=== PATIENT | male | born 1990 | race Caucasian/White ===

== ENCOUNTER 2021-07-24 18:09 | Emergency (ER) | payer BC, SELFPAY ==
[2021-07-24 19:28] VITALS: BP 116/74; PULSE 85; RESP 18; TEMP 36.9; O2SAT 96; BMI 20.9
[2021-07-24 19:38] LABS: UTC Strep Screen (Rapid) Positive (Negative)
--- NOTE | 2021-07-24 19:50 | HMH.EDUTC ---
[facility] Dis[facility] Clinical Impression: Strep throat Disposition: Home, Self-Care Condition on Discharge: Good Instructions: Strep Throat, DI for Strep Throat Additional Instructions: Drink plenty of fluids. Take tylenol or ibuprofen for pain or fever. Take the medications as directed. Follow up with your regular doctor. GO TO THE ER FOR ANY WORSENING SYMPTOMS Throw your tooth brush away and get a new one. Prescriptions: Brompheniramine/Pseudoephed/Dm [Bromfed Dm Cough Syrup] 5 ml PO Q6HP PRN #240 ml PRN Reason: Cough Transmission Status: Received by [id number] Amoxicillin [Amoxicillin 500mg Tab] 500 mg PO TID 10 Days #30 tab Transmission Status: Received by [id number] predniSONE [Deltasone 10mg tablet] 10 mg PO BID 3 Days #6 tab Transmission Status: Received by [id number] Referrals: Wallace Rodriguez MD [Primary Care Provider] - Forms: Work/School Release Time of Disposition: 20:33 Medical Decision Making - Medical Records Medical records reviewed: No: I reviewed the patient's medical records. - Bird Inquiry Pt receiving controlled substance: No Vital Signs: 07/24/21 19:28 Temperature 98.5 F Temperature Source Oral Pulse Rate [Left] 85 Respiratory Rate 18 Blood Pressure [Right Arm] 116/74 Blood Pressure Mean [Right Arm] 88 02 Sat by Pulse Oximetry 96 - Lab Data Lab results reviewed: Yes: I reviewed the patient's lab results. Lab Results 07/24/21 19:28: Strep [facility] Positive A Orders (Tests/Meds): ED MEDICATIONS Discontinued Medications Generic Name Dose Route Start Last Admin Trade Name Freq PRN Reason Stop Dose Admin Ceftriaxone Sodium 1 gm 07/24/21 19:57 07/24/21 20:11 Ceftriaxone 1gm Vial IM 07/24/21 19:58 1 gm ONCE ONE Administration Lidocaine HCl 0 ml 07/24/21 19:57 07/24/21 20:11 Lidocaine 1% 5ml Pf Vial IM 07/24/21 19:58 2 ml ONCE ONE Administration [facility] HPI - General Stated complaint: sore throat,cough,congestion Time Seen by Provider: 07/24/21 19:51 Mode of Arrival: Ambulatory Source of Information: Patient Limitations: No Limitations Description of Symptoms (Recalled from Triage Doc. by RN): pt c/o nasal drainage, cough and sore throat. HEENT Symptoms (Recalled from RN notes): Yes Resp Symptoms (Recalled from RN notes): Yes Skin Symptoms (Recalled from RN notes): No MS Symptoms (Recalled from RN notes): No Functional Status (Recalled from RN notes): wnl - History of Present Illness Provider Complaint: He c/o sore throat for the past 2 days. - Related Data Home Medications Medication Instructions Recorded Confirmed Aspirin [Aspir 81] 81 mg PO DAILY 12/03/17 02/09/20 insulin lispro 100 unit/mL 32 unit SUB-Q QHS ml 02/09/20 02/09/20 subcutaneous half-unit pen Previous Rx's Medication Instructions Recorded Amoxicillin [Amoxicillin 500mg Tab] 500 mg PO TID 10 Days #30 tab 07/24/21 Brompheniramine/Pseudoephed/Dm 5 ml PO Q6HP PRN #240 ml 07/24/21 [Bromfed Dm Cough Syrup] predniSONE [Deltasone 10mg tablet] 10 mg PO BID 3 Days #6 tab 07/24/21 Allergies Allergy/AdvReac Type Severity Reaction Status Date / Time No Known Allergies Allergy Verified 02/09/20 10:54 - Worker's Comp Is this a Worker's Comp case?: No [facility] History - Hepatitis A Screen Drug use history?: No High risk sexual behaviors?: No History of sexually transmitted infection?: No Currently employed?: No Childcare worker?: No Do you have indoor plumbing?: Yes Do you have electricity?: Yes Attestation statement:: This patient has been screened for Hepatitis A risk factors. I have reviewed the patient's past medical history: Yes Medical History: Reports:: Diabetes Mellitus Type 1 Denies:: Diabetes Mellitus Type 2 Laterality Cases: Left: Arthroscopy Knee Other Surgeries: Yes: Cardiac Catheterization - Social History Smoking Status: Current every day smoker # Packs/Day
[2021-07-24 20:36] VITALS: BP 116/74; PULSE 85; RESP 18; TEMP 36.9
== END 2021-07-24 20:39 | disposition home or self-care (01) ==
PROVIDERS: Emergency Provider Nurse Practitioner Family; PCP Internal Medicine Cardiovascular Disease
DX: J02.0 Streptococcal pharyngitis (principal); B95.0 Streptococcus, group A, as the cause of diseases classified elsewhere; E10.9 Type 1 diabetes mellitus without complications; F17.210 Nicotine dependence, cigarettes, uncomplicated; Z79.4 Long term (current) use of insulin; Z79.82 Long term (current) use of aspirin; Z79.52 Long term (current) use of systemic steroids; Z79.899 Other long term (current) drug therapy; Z82.49 Family history of ischemic heart disease and other diseases of the circulatory system
CPT/HCPCS: 87880; 99213; G0463; J0696

== ENCOUNTER 2022-12-24 16:14 | Emergency (ER) | payer BC, SELFPAY ==
[2022-12-24 16:14] VITALS: BP 147/105; PULSE 92; RESP 16; TEMP 36.6; O2SAT 99; BMI 23.3
--- NOTE | 2022-12-24 16:14 | ECG_ITS ---
APPROVED REPORT Exam: Resting ECG HR:81 bpm ECG Measurements Heart Rate 81 AXES PA 132 P 63 QRSd 96 QRS 89 QT 339 T 48 QTc 376 Conclusion SINUS RHYTHM NORMAL ECG UNCONFIRMED REPORT Electronically signed by : Jarod Oropeza MD 12/25/2022 17:41:51
--- NOTE | 2022-12-24 16:25 | XR_ITS ---
PROCEDURE INFORMATION: Exam: XR Chest Exam date and time: 12/24/2022 4:28 PM Age: 32 years old Clinical indication: Right-sided and other: Center and right sided chest pain TECHNIQUE: Imaging protocol: Radiologic exam of the chest. Views: 2 views. COMPARISON: CR [id number] XR chest portable 12/03/2017 8:35 AM FINDINGS: Lungs: No evidence of pneumonia or interstitial edema. Pleural spaces: Unremarkable. No pleural effusion. No pneumothorax. Heart/Mediastinum: Unremarkable. No cardiomegaly. Bones/joints: Unremarkable. IMPRESSION: No evidence of pneumonia or interstitial edema.
--- NOTE | 2022-12-24 16:32 | HMH.EDGENADL ---
Discharge Plan Disposition Patient Disposition: Home, Self-Care Condition: Good Prescriptions Prescriptions: No Action insulin lispro [Humalog Floyd KwikPen U-100] 100 unit/mL insulin pen, half-unit 32 unit SUB-Q QHS aspirin 81 MG tablet,delayed release (DR/EC) 81 mg PO DAILY prednisone 10 MG tablet 10 mg PO BID 3 Days Qty: 6 0RF amoxicillin 500 MG tablet 500 mg PO TID 10 Days Qty: 30 0RF vaweakpwzqnpbix-ltkvjkqiv-NN 118 ML syrup 5 ml PO Q6HP PRN (Reason: Cough) Qty: 240 0RF Referrals Follow up/Referrals: Provider,Referral, MD [Referring] - See instructions Clinical Impressions Clinical Impression: Chest pain Qualifiers: Chest pain type: unspecified Qualified Code(s): R07.9 - Chest pain, unspecified Instructions Patient Instructions: DI for Atypical Chest Pain Discharge ED Provider: Jalyn Mckeon General Adult HPI General Chief complaint: Chest Pain Stated complaint: CHEST PAIN Time Seen by Provider: 12/24/22 16:17 Mode of Arrival: Ambulatory Source of Information: Patient Limitations: No Limitations Description of Symptoms (Recalled from ER Triage Doc. by RN): PT REPORTS MIDSTERNAL CHEST PAIN THAT STARTED LAST NIGHT WHILE MAKING SUPPER. PT REPORTED BEING LIGHT HEADED AND DIZZY. PAIN IS WORSE WITH DEEP INSPIRATION. PAIN DOES NOT RADIATE. DENIES N/V OR SHORTNESS OF BREATH History of Present Illness HPI narrative: Patient with past medical history of type 1 diabetes who presents to the ED with complaints of chest pain. Patient notes that he worked overnight last night at the [employer]. Patient notes that since this morning, he has been experiencing a constant chest tightness in the center of his chest. Patient notes that he has some associated lightheadedness and dizziness. Patient notes that the chest pain is intermittently pleuritic. Patient notes that he feels congested and has been having a runny nose. Patient denies any prior cardiac history, no shortness of breath, no syncope Related Data Home Medications Medication Instructions Recorded Confirmed aspirin 81 mg tablet,delayed 81 mg PO DAILY prevention of blood 12/03/17 02/09/20 release clots insulin lispro 100 unit/mL 32 unit SQ QHS 02/09/20 02/09/20 subcutaneous half-unit pen (Humalog Floyd KwikPen (U-100)) Previous Rx's Medication Instructions Recorded amoxicillin 500 mg tablet 500 mg PO TID 10 days #30 tabs 07/24/21 pgexkievluglbcy-filtnomvolablit-CF 5 ml PO Q6HP PRN Cough #240 mL 07/24/21 2 mg-30 mg-10 mg/5 mL oral syrup prednisone 10 mg tablet 10 mg PO BID 3 days #6 tabs 07/24/21 Allergies Allergy/AdvReac Type Severity Reaction Status Date / Time No Known Allergies Allergy Verified 02/09/20 10:54 [facility] Disclaimer: The information contained in this section may have been updated after the patient was seen, as this information can be updated by other users. Social History Smoking Status: Never smoker alcohol intake: never substance use type: denies use current occupational status: employed and disabled Travel in the last 8 weeks: Inside the [place] ROS Obtained: Yes All systems reviewed & no additional complaints except as documented Physical Exam General General appearance: alert and in no apparent distress Head Head exam: atraumatic, normocephalic and normal inspection Eye Eye exam: Present normal appearance, PERRL and EOMI; Absent scleral icterus or nystagmus ENT ENT exam: Present normal exam, mucous membranes moist and normal external ear exam Neck Neck exam: Present normal inspection, full ROM and trachea midline Chest Chest inspection: Present normal inspection and symmetric chest wall rise; Absent tenderness Respiratory Respiratory exam: Present normal lung sounds bilaterally; Absent respiratory distress, wheezes or accessory muscle use Cardiovascular Cardiovascular exam: Present regular rate, normal rhythm and normal heart sounds Abdomina
[2022-12-24 16:38] LABS: Basophils % 1.1 % (0.1-2.0); Eosinophils # 0.1 K/mm3 (0.0-0.4); Eosinophils % 1.4 % (0.1-12.0); Hematocrit 49.2 % (42.0-52.0); Hemoglobin 16.2 g/dL (14.1-18.0); Lymphocytes # 1.4 K/mm3 (0.7-4.5); Lymphocytes % 41.4 % (10-50); Mean Corpuscular Hemoglobin 29.1 pg (27.0-31.2); Mean Corpuscular Volume 88.1 fl (80-94); Mean Platelet Volume 7.8 fl (7.4-10.4); Monocytes # 0.3 K/mm3 (0.1-1.0); Monocytes % 7.8 % (1.7-9.3); Neutrophils # 1.6 K/mm3 (1.8-7.8); Neutrophils % 48.4 % (37.0-80.0); Platelet Count 254 K/mm3 (142-424); Red Blood Count 5.58 M/mm3 (4.60-6.20); White Blood Count 3.4 K/mm3 (4.8-10.8)
[2022-12-24 16:44] LABS: Alanine Aminotransferase 19 U/L (12-78); Albumin Level 4.3 g/dl (3.5-5.0); Albumin/Globulin Ratio 1.6 (1.1-1.8); Alkaline Phosphatase 63 U/L (38-126); Anion Gap 9.3 mEq/L (5-15); Aspartate Amino Transferase 28 U/L (17-59); Bilirubin,Total 0.8 mg/dl (0.2-1.3); Blood Urea Nitrogen 13 mg/dl (9-20); Calcium 9.2 mg/dl (8.4-10.2); Carbon Dioxide 32 mmol/L (22.0-30.0); Chloride 104 mmol/L (98-107); Creatinine Clearance Estimated 126 mL/min (50-200); Estimated Glomerular Filt Rate 114 ml/min (>60); GFR (African American) 137 ML/MIN (>60); Globulin 2.7 g/dL (1.3-3.2); Glucose 135 mg/dl (74-100); Potassium 4.3 mmoL/L (3.5-5.1); Sodium 141 mmol/L (136-145)
[2022-12-24 16:56] LABS: Troponin I < 0.01 ng/ml (0.00-0.034)
[2022-12-24 17:01] VITALS: BP 145/105; PULSE 72; O2SAT 98
[2022-12-24 17:30] VITALS: BP 128/93; PULSE 64; O2SAT 99
--- NOTE | 2022-12-24 17:37 | PC.NURSE ---
DR VOGEL AT BEDSIDE TO UPDATE PT
[2022-12-24 17:44] VITALS: BP 128/93; PULSE 66; RESP 17; TEMP 36.6; O2SAT 99
== END 2022-12-24 17:46 | disposition home or self-care (01) ==
PROVIDERS: Emergency Provider Emergency Medicine; PCP Nurse Practitioner Family
DX: R07.9 Chest pain, unspecified (principal); R55 Syncope and collapse; R42 Dizziness and giddiness; E10.9 Type 1 diabetes mellitus without complications
CPT/HCPCS: 71046; 80053; 84484; 85025; 93005; 96360; 99285

== ENCOUNTER 2023-06-01 17:08 | Emergency (ER) | payer BC, SELFPAY ==
--- NOTE | 2023-06-01 17:06 | ECG_ITS ---
APPROVED REPORT Exam: Resting ECG HR:91 bpm ECG Measurements Heart Rate 91 AXES RI 126 P 147 QRSd 96 QRS 137 QT 317 T 127 QTc 366 Conclusion SINUS RHYTHM NORMAL ECG UNCONFIRMED REPORT Electronically signed by : Jarod Oropeza MD 06/02/2023 13:09:11
[2023-06-01 17:08] VITALS: BP 138/81; PULSE 95; RESP 20; TEMP 37.1; O2SAT 99; BMI 25.7
--- NOTE | 2023-06-01 17:27 | PC.NURSE ---
Dr. Poole at BS for clara
--- NOTE | 2023-06-01 17:38 | XR_ITS ---
PROCEDURE INFORMATION: Exam: XR Chest Exam date and time: 06/01/2023 5:37 PM Age: 33 years old Clinical indication: Dyspnea TECHNIQUE: Imaging protocol: Radiologic exam of the chest. Views: 1 view. COMPARISON: CR XR CHEST 2V 12/24/2022 4:28 PM FINDINGS: Tubes, catheters and devices: Extensive apparatus is present over the chest wall which limits study. Lungs: No evidence of acute pulmonary disease or infiltrates; lung hanley appear clear. Pleural spaces: No large effusion or pneumothorax. Heart/Mediastinum: Stable cardiac and mediastinal contours. Bones/joints: No evidence of acute osseous abnormalities within the visualized portions of the thoracic spine and ribs. Osseous structures appear appropriate for patient age. IMPRESSION: No dense parenchymal consolidation, pleural effusion, or pneumothorax.
--- NOTE | 2023-06-01 17:41 | PC.NURSE ---
RAD at for CXR
[2023-06-01 17:43] LABS: Basophils % 0.9 % (0.1-2.0); Eosinophils % 0.5 % (0.1-12.0); Hematocrit 48.6 % (42.0-52.0); Hemoglobin 16.6 g/dL (14.1-18.0); Lymphocytes # 1.6 K/mm3 (0.7-4.5); Lymphocytes % 38.3 % (10-50); Mean Corpuscular HGB Conc 34.1 g/dL (31.8-35.4); Mean Corpuscular Hemoglobin 31.4 pg (27.0-31.2); Mean Corpuscular Volume 92.1 fl (80-94); Mean Platelet Volume 7.4 fl (7.4-10.4); Monocytes # 0.3 K/mm3 (0.1-1.0); Monocytes % 7.3 % (1.7-9.3); Neutrophils # 2.2 K/mm3 (1.8-7.8); Platelet Count 313 K/mm3 (142-424); Red Blood Count 5.28 M/mm3 (4.60-6.20); Red Cell Distribution Width 13.1 % (11.5-17.5); White Blood Count 4.2 K/mm3 (4.8-10.8)
--- NOTE | 2023-06-01 17:43 | ED_ITS ---
Discharge Plan Disposition Patient Disposition: Home, Self-Care Prescriptions Prescriptions: No Action insulin lispro [Humalog Floyd Kay U-100] 100 unit/mL insulin pen, half- unit 32 unit SUB-Q QHS aspirin 81 MG tablet,delayed release (DR/EC) 81 mg PO DAILY prednisone 10 MG tablet 10 mg PO BID 3 Days Qty: 6 0RF amoxicillin 500 MG tablet 500 mg PO TID 10 Days Qty: 30 0RF tajwqmchpczoclb-inxpfykyh-HL 118 ML syrup 5 ml PO Q6HP PRN (Reason: Cough) Qty: 240 0RF Referrals Follow up/Referrals: Provider,Referral, MD [Primary Care Provider] - See instructions Activity Restrictions/Add. Instructions Additional Instructions/Restrictions: Definitive evidence of acute cardiopulmonary emergency your symptoms completely resolved with a GI cocktail suggesting this may be gastrointestinal in nature. I would suggest that you take [id number] Pepcid at least at night you may also take Maalox as needed if you are having recurrent symptoms. If you develop any exertional chest pain associated with shortness of breath or sweating please return to the emergency department. Clinical Impressions Clinical Impression: Chest pain, GERD (gastroesophageal reflux disease) Discharge ED Provider: Sagrario Poole [facility] General Chief Complaint: Chest Pain Stated Complaint: chest pain Time Seen by Provider: 06/01/23 17:27 Mode of Arrival: Ambulatory Source of Information: Patient Limitations: No Limitations Description of Symptoms (Recalled from ER Triage Doc. by RN): Pateint reports pain in middle of chest that started 20 minutes ago. Pain is not radiating anywhere. Patient states he had a heart cath 4 years ago and did not have any stents placed. Patient reports he is a diabetic and FSBS is 209 on arrival. History of Present Illness HPI narrative: Patient is a 33-year-old male presents today within 1 hour of the onset of his chest discomfort. States that he first stated that he was having some spasming in the left upper quadrant of his abdomen but subsequently developed some epigastric and substernal chest discomfort. This is nonradiating is not associate with diaphoresis or shortness of breath. It is nonexertional. No history of any cardiac disease in himself. He does have a history of type 1 diabetes that has been very well controlled with a last A1c of 7.0. Also has a paternal family history of cardiac disease. Currently states he has some mild discomfort denies any GERD symptoms leading up to today's symptoms. Related Data Home Medications Medication Instructions Recorded Confirmed aspirin 81 mg tablet,delayed 81 mg PO DAILY prevention of blood 12/03/17 02/09/20 release clots insulin lispro 100 unit/mL 32 unit SQ QHS 02/09/20 02/09/20 subcutaneous half-unit pen (Humalog Floyd Kay (U-100)) Previous Rx's Medication Instructions Recorded amoxicillin 500 mg tablet 500 mg PO TID 10 days #30 tabs 07/24/21 nyrymyrssetwyjf-aeihljxzvzwlvuc-RH 5 ml PO Q6HP PRN Cough #240 mL 07/24/21 2 mg-30 mg-10 mg/5 mL oral syrup prednisone 10 mg tablet 10 mg PO BID 3 days #6 tabs 07/24/21 Allergies Allergy/AdvReac Type Severity Reaction Status Date / Time No Known Allergies Allergy Verified 02/09/20 10:54 [facility] Disclaimer: The information contained in this section may have been updated after the patient was seen, as this information can be updated by other users. Social History Smoking Status: Never smoker alcohol intake: never substance use type: denies use current occupational status: employed and disabled Travel in the last 8 weeks: Inside the [place] ROS Obtained: Yes All systems reviewed & no additional complaints except as documented Physical Exam General General appearance: alert Chest Chest inspection: Absent tenderness Respiratory Respiratory exam: Present normal lung sounds bilaterally; Absent respiratory distress, wheezes, stridor, accessory muscle use or prolonged expiratory phase Cardiovascular Cardiovascular exam: Present regular rate; Absent tachycardia Abdominal Exam Abdominal exam: Present soft; Absent distention or tenderness Neurological Exam Neurological exam: Present alert and oriented X3 HEART Score HEART Score HEART Score assessment performed?: Yes History (anamnesis): Slightly suspicious ECG: Normal Age: <45 years Risk factors: 1-2 risk factors Troponin: </= normal limit HEART Score: 1 Critical Care Critical Care Time Critical Care Time: No Medical Decision Making Bird Inquiry Pt receiving controlled substance: No Vital Signs Vital Signs: 06/01/23 17:08 Temperature 98.7 F Temperature Source Oral Pulse Rate [Right Brachial] 95 H Respiratory Rate 20 Blood Pressure [Right Arm] 138/81 Blood Pressure Mean [Right Arm] 100 Blood Pressure Source [Right Arm] Automatic Cuff Blood Pressure Position [Right Arm] Supine 02 Sat by Pulse Oximetry 99 Oxygen Delivery Method Room Air Lab Data Lab results reviewed: Yes I reviewed the patient's lab results. Labs: Lab Results 06/01/23 17:10: WBC 4.2 L, RBC 5.28, Hgb 16.6, Hct 48.6, MCV 92.1, MCH 31.4 H, MCHC 34.1, RDW 13.1, Plt Count 313, MPV 7.4, Neut % (Auto) 53.0, Lymph % (Auto) 38.3, Sutter % (Auto) 7.3, Eos % (Auto) 0.5, Baso % (Auto) 0.9, Neut # (Auto) 2.2, Lymph # (Auto) 1.6, Sutter # (Auto) 0.3, Eos # (Auto) 0.0, Baso # (Auto) 0.0, Sodium 137, Potassium 4.3, Chloride 103, Carbon Dioxide 30, Anion Gap 8.3, BUN 11, Creatinine 1.00, Estimated Creat Clear 106, Estimated GFR 87, Est GFR ( Amer) 105, Glucose 205 H, Calcium 8.9, Total Bilirubin 0.7, AST 33, ALT 24, Alkaline Phosphatase 69, Troponin I < 0.01, Total Protein 6.7, Albumin 4.1, Globulin 2.6, Albumin/Globulin Ratio 1.6, Lipase 25 06/01/23 17:10 06/01/23 17:10 Response Orders (Tests/Meds): ED MEDICATIONS Discontinued Medications Generic Name Dose Route Start Last Admin Trade Name Freq PRN Reason Stop Dose Admin Belladonna Alkaloids 60 ml 06/01/23 17:38 06/01/23 17:46 Belladonna Alkaloids 60 Ml Ml PO 06/01/23 17:39 60 ml ONCE ONE Administration ORDERS Category Date Time Status CXR --portable [XR chest portable] Stat Exams 06/01/23 17:38 Completed CBC w/Auto Diff [Complete Blood Count Auto Diff] Stat Lab 06/01/23 17:10 Completed CMP [Comprehensive Metabolic Panel] Stat Lab 06/01/23 17:10 Completed Lipase Stat Lab 06/01/23 17:10 Completed Trop I [Troponin I] Stat Lab 06/01/23 17:10 Completed Troponin I Q3H Lab 06/01/23 20:45 Ordered Troponin I Q3H Lab 06/01/23 23:45 Ordered MDM Narrative Medical Decision Narrative: Well-appearing 33-year-old male with a benign physical exam and from historical standpoint is unlikely to be acute coronary syndrome but he presents today with chest pain. Given the fact that he is here within 1 hour of onset of symptoms he will require serial troponins to rule out any type of myocardial injury or acute coronary syndrome but this is low likelihood in my estimation he has a heart score of 1 assuming undetectably low troponin. For this reason in ED observation order was placed at around 5:40 PM. Other things in the differential would be gastroesophageal reflux disease, musculoskeletal spasm or strain, esophageal spasm, gastroesophageal reflux disease. Pulmonary embolism is unlikely patient is PERC negative will not work this up further. EKG performed which I personally interpreted shows a ventricular rate of 91 sinus rhythm no acute ischemic changes noted or significant conduction abnormalities is nondiagnostic from an emergency standpoint. X-ray performed which I personally interpreted which shows no acute cardiopulmonary emergency or focal consolidation etc. Reassessment 6:21 PM patient feels 100% better immediately after getting his GI cocktail states all of his symptoms went away suggesting this is most likely gastrointestinal in nature. I did discuss with him the risks and benefits of obtaining a serial troponin and if stated above the initial plan was to place the patient observation status and await 3-hour time period and get a second troponin. I informed him that I cannot definitively state that he has not had any acute myocardial infarction or acute coronary syndrome as it takes several hours for troponins rise and he understands this however he feels much better believes that he also had some anxiety associated with it and would not like to wait for this. He understands there is a very low risk that this is cardiac in nature but we both agree this is most likely gastrointestinal. He will take Pepcid at home he was discharged in improved and stable condition with advice to follow-up with primary care doctor and return with any worsening symptoms.
[2023-06-01] MEDS: BELLADONNA ALKALOIDS 60 ML ML PO (17:46)
[2023-06-01 17:47] LABS: Chloride 103 mmol/L (98-107); Potassium 4.3 mmoL/L (3.5-5.1); Sodium 137 mmol/L (136-145)
[2023-06-01 17:50] LABS: Alanine Aminotransferase 24 U/L (12-78); Albumin Level 4.1 g/dl (3.5-5.0); Albumin/Globulin Ratio 1.6 (1.1-1.8); Alkaline Phosphatase 69 U/L (38-126); Anion Gap 8.3 mEq/L (5-15); Aspartate Amino Transferase 33 U/L (17-59); Bilirubin,Total 0.7 mg/dl (0.2-1.3); Blood Urea Nitrogen 11 mg/dl (9-20); Carbon Dioxide 30 mmol/L (22.0-30.0); Creatinine Clearance Estimated 106 mL/min (50-200); Estimated Glomerular Filt Rate 87 ml/min (>60); GFR (African American) 105 ML/MIN (>60); Globulin 2.6 g/dL (1.3-3.2); Total Protein,Serum 6.7 g/dl (6.3-8.2)
[2023-06-01 17:51] LABS: Calcium 8.9 mg/dl (8.4-10.2); Glucose 205 mg/dl (74-100)
[2023-06-01 18:02] LABS: Troponin I < 0.01 ng/ml (0.00-0.034)
[2023-06-01 18:05] LABS: Lipase 25 U/L (23-300)
[2023-06-01 18:23] VITALS: BP 136/88; PULSE 85; RESP 17; TEMP 36.7; O2SAT 95
== END 2023-06-01 18:24 | disposition home or self-care (01) ==
PROVIDERS: Emergency Provider Student in an Organized Health Care Education/Training Program
DX: R07.9 Chest pain, unspecified (principal); K21.9 Gastro-esophageal reflux disease without esophagitis; R10.13 Epigastric pain; E10.9 Type 1 diabetes mellitus without complications
CPT/HCPCS: 71045; 80053; 83690; 84484; 85025; 93005; 99285

== ENCOUNTER 2023-09-11 16:24 | Emergency (ER) | payer BC, SELFPAY ==
[2023-09-11 16:50] VITALS: BP 117/70; PULSE 86; RESP 18; TEMP 36.8; O2SAT 99; BMI 25.4
--- NOTE | 2023-09-11 16:55 | EXP.UTC ---
Discharge Plan Disposition Patient Disposition: Home, Self-Care Condition: Good Prescriptions Prescriptions: New azithromycin [Zithromax] 250 mg tablet 250 mg PO UD DOSE PK Qty: 6 0RF Rx Instructions: Take two (2) tablets today, then one (1) tablet days #2 thru #5 benzonatate 100 mg capsule 100 mg PO TIDP PRN (Reason: Cough) Qty: 30 0RF No Action insulin lispro [Humalog Floyd KwikPen U-100] 100 unit/mL insulin pen, half-unit 32 unit SUB-Q QHS lisinopril 2.5 mg tablet 2.5 mg PO DAILY Patient Comments: TAKE 1 TABLET BY MOUTH ONCE DAILY Referrals Follow up/Referrals: Ya Capps APRN [Primary Care Provider] - See instructions Activity Restrictions/Add. Instructions Additional Instructions/Restrictions: Drink plenty of fluids. Take tylenol or ibuprofen for pain or fever. Take the medications as directed. Follow up with your regular doctor. GO TO THE ER FOR ANY WORSENING SYMPTOMS Clinical Impressions Clinical Impression: Pharyngitis, Bronchitis Instructions Patient Instructions: Sore Throat, DI for Pharyngitis/Tonsillopharyngitis -- Adult Discharge ED Provider: Jay Dorman [facility] General Stated complaint: sore throat, BOYER cough Time Seen by Provider: 09/11/23 16:55 History of Present Illness Provider Complaint: He states that he has had sore throat, headache, cough, and malaise for the past 2 days. Related Data Home Medications Medication Instructions Recorded Confirmed insulin lispro 100 unit/mL 32 unit SQ QHS 02/09/20 09/11/23 subcutaneous half-unit pen (Humalog Floyd KwikPen (U-100)) lisinopril 2.5 mg tablet 2.5 mg PO DAILY 09/11/23 09/11/23 Previous Rx's Medication Instructions Recorded azithromycin 250 mg tablet 250 mg PO UD DOSE PK #6 tabs 09/11/23 (Zithromax) benzonatate 100 mg capsule 100 mg PO TIDP PRN Cough #30 caps 09/11/23 Allergies Allergy/AdvReac Type Severity Reaction Status Date / Time No Known Allergies Allergy Verified 09/11/23 17:05 [facility] Disclaimer: The information contained in this section may have been updated after the patient was seen, as this information can be updated by other users. Social History Smoking Status: Never smoker alcohol intake: never substance use type: denies use current occupational status: employed and disabled Travel in the last 8 weeks: Inside the [place] ROS Obtained: Yes All systems reviewed & no additional complaints except as documented Constitutional Constitutional: Reports chills and Reports fever(s) Eyes Eyes: Denies eye discharge ENT Ears, Nose, Mouth, and Throat: Reports as per HPI Cardiovascular Cardiovascular: Denies chest pain Respiratory Respiratory: Denies chest congestion and Reports cough Gastrointestinal Gastrointestingal: Reports nausea; Denies abdominal pain, constipation, cramping, diarrhea or vomiting Musculoskeletal Musculoskeletal: Denies arthralgias Integumentary/Breasts Skin/Breast: Denies rash Neurologic Neurologic: Denies paresthesias Physical Exam General General appearance: alert and in no apparent distress Head Head exam: atraumatic, normocephalic and normal inspection Eye Eye exam: Present normal appearance, PERRL and EOMI ENT ENT exam: Present mucous membranes moist and normal external ear exam Expanded ENT Exam TM/Canal exam: Bilateral TM: erythema and bulging Nose exam: Absent sinus tenderness Mouth exam: Present normal external inspection; Absent drooling Teeth exam: Present normal inspection Throat exam: Present tonsillar erythema, tonsillomegaly and tonsillar exudate Neck Neck exam: Present normal inspection, full ROM and trachea midline; Absent tenderness, meningismus or lymphadenopathy Chest Chest inspection: Present normal inspection and symmetric chest wall rise; Absent tenderness Respiratory Respiratory exam: Present normal lung sounds bilaterally; Absent respiratory distress, wheezes or stridor Cardiovascular Cardiovascular exam: Present regular rate and normal rhythm; Absent systolic murmur or diastolic murmur Abdominal Exam Abdominal exam: Present soft and normal bowel sounds; Absent distention, tenderness, guarding, rebound or rigidity Extremities Exam Extremities exam: Present normal inspection and normal capillary refill; Absent calf tenderness Back Exam Back exam: Present normal inspection and full ROM; Absent tenderness, CVA tenderness (R) or CVA tenderness (L) Neurological Exam Neurological exam: Present alert, oriented X3 and CN II-XII intact Psychiatric Psychiatric exam: Present normal affect and normal mood Skin Skin exam: Present warm, dry, intact and normal color Medical Decision Making Medical Records Medical records reviewed: No I reviewed the patient's medical records. Bird Inquiry Pt receiving controlled substance: No Lab Data Lab results reviewed: Yes I reviewed the patient's lab results.
[2023-09-11 17:04] LABS: UTC Strep Screen (Rapid) Negative (Negative)
[2023-09-11 17:49] VITALS: BP 117/70; PULSE 86; RESP 18; TEMP 36.8; O2SAT 99
--- NOTE | 2023-09-11 17:50 | PC.NURSE ---
Sent rapid to lab via tube
[2023-09-11 17:53] LABS: Coronavirus 19, PCR Not Detected (NotDetected); Influenza A, PCR Not Detected (NotDetected); Influenza B, PCR Not Detected (NotDetected)
== END 2023-09-11 17:49 | disposition home or self-care (01) ==
PROVIDERS: Emergency Provider Nurse Practitioner Family; PCP Nurse Practitioner Family
DX: J20.9 Acute bronchitis, unspecified (principal); J02.9 Acute pharyngitis, unspecified; R51.9 Headache, unspecified; R05.9 Cough, unspecified
CPT/HCPCS: 87636; 87880; 99212; 99214; G0463

== ENCOUNTER 2023-11-20 01:29 | Emergency (ER) | payer BC, SELFPAY ==
[2023-11-20 01:43] VITALS: BP 151/110; PULSE 87; RESP 14; TEMP 36.8; O2SAT 100; BMI 25.7
--- NOTE | 2023-11-20 01:44 | ED_ITS ---
Discharge Plan Disposition Patient Disposition: Home, Self-Care Prescriptions Prescriptions: No Action insulin lispro [Humalog Floyd KwikPen U-100] 100 unit/mL insulin pen, half- unit 32 unit SUB-Q QHS lisinopril 2.5 mg tablet 2.5 mg PO DAILY Patient Comments: TAKE 1 TABLET BY MOUTH ONCE DAILY azithromycin [Zithromax] 250 mg tablet 250 mg PO UD DOSE PK Qty: 6 0RF Rx Instructions: Take two (2) tablets today, then one (1) tablet days #2 thru #5 benzonatate 100 mg capsule 100 mg PO TIDP PRN (Reason: Cough) Qty: 30 0RF Referrals Follow up/Referrals: Ya Capps APRN [Primary Care Provider] - See instructions Activity Restrictions/Add. Instructions Additional Instructions/Restrictions: Patient was seen on Wednesday morning. Patient is okay to return to work on Wednesday. Clinical Impressions Clinical Impression: Dizziness, Diarrhea Discharge ED Provider: Eron Berger General Adult HPI General Chief complaint: Dizziness Stated complaint: dizziness,manjarrez,sinus pressure, L ear pain,pressure Time Seen by Provider: 11/20/23 01:36 History of Present Illness HPI narrative: 33-year-old male with history of type 1 diabetes presents with multiple complaints. 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 Tonight he felt dizzy multiple times and was pulled off the line to be evaluated. He reports that at the factory they did an EKG which was reportedly normal. He reports that his sugars have been normal. The last couple of weeks patient had developed a sore throat and some left ear pain. Had a negative strep test at that time but was given azithromycin by urgent care anyway. For the last few days he has had significant intermittent diarrhea as well. He reports that he has some ear pain on the left side currently. He also reports that he has a mild headache. He denies any vision changes. He denies any head trauma. Related Data Home Medications Medication Instructions Recorded Confirmed insulin lispro 100 unit/mL 32 unit SQ QHS 02/09/20 09/11/23 subcutaneous half-unit pen (Humalog Floyd KwikPen (U-100)) lisinopril 2.5 mg tablet 2.5 mg PO DAILY 09/11/23 09/11/23 Previous Rx's Medication Instructions Recorded azithromycin 250 mg tablet 250 mg PO UD DOSE PK #6 tabs 09/11/23 (Zithromax) benzonatate 100 mg capsule 100 mg PO TIDP PRN Cough #30 caps 09/11/23 Allergies Allergy/AdvReac Type Severity Reaction Status Date / Time No Known Allergies Allergy Verified 09/11/23 17:05 [facility] Disclaimer: The information contained in this section may have been updated after the patient was seen, as this information can be updated by other users. Social History Smoking Status: Unknown if ever smoked alcohol intake: never substance use type: denies use current occupational status: employed and disabled Travel in the last 8 weeks: [place] the [place] ROS Obtained: Yes All systems reviewed & no additional complaints except as documented Physical Exam General General appearance: alert and in no apparent distress Head Head exam: atraumatic and normocephalic Eye Eye exam: Present normal appearance, PERRL and EOMI ENT ENT exam: Present normal oropharynx, normal external ear exam and other (TMs normal bilaterally) Neck Neck exam: Present normal inspection and full ROM Chest Chest inspection: Present normal inspection and symmetric chest wall rise; Absent tenderness Respiratory Respiratory exam: Present normal lung sounds bilaterally; Absent respiratory distress Cardiovascular Cardiovascular exam: Present regular rate and normal rhythm Abdominal Exam Abdominal exam: Present soft; Absent distention, tenderness or guarding Extremities Exam Extremities exam: Present normal inspection; Absent edema or joint swelling Back Exam Back exam: Present normal inspection; Absent tenderness Neurological Exam Neurological exam: Present alert and oriented X3; Absent motor sensory deficit Psychiatric Psychiatric exam: Present normal affect and normal mood Skin Skin exam: Present warm, dry and normal color Lymphatic Lymphatic Findings: no adenopathy Medical Decision Making Medical Records Medical records reviewed: Yes I reviewed the patient's medical records. Bird Inquiry Pt receiving controlled substance: No Bird was queried for this patient: No Vital Signs: 11/20/23 01:43 11/20/23 02:06 Temperature 98.3 F 98.2 F Temperature Source Oral Oral Pulse Rate 87 Pulse Rate [Right Brachial] 87 Respiratory Rate 14 18 Blood Pressure 151/110 H Blood Pressure [Right Arm] 151/110 H Blood Pressure Mean [Right Arm] 123 Blood Pressure Source Automatic Cuff Blood Pressure Source [Right Arm] Automatic Cuff Blood Pressure Position Sitting Blood Pressure Position [Right Arm] Sitting 02 Sat by Pulse Oximetry 100 Oxygen Delivery Method Room Air Room Air Lab Data Lab results reviewed: Yes I reviewed the patient's lab results. Medical Decision Narrative: 33-year-old male with history of type 1 diabetes, likely recent viral infection for which he was prescribed antibiotics and subsequently developed diarrhea, increased exertion at work in the heat, presents with mild headache and intermittent dizziness.. History was obtained interactive discussion with patient, chart review. On arrival, patient is [afebrile, hemodynamically stable, satting appropriately, alert, oriented x4, GCS 15], moving all extremities spontaneously. Full physical exam performed and significant for clear TMs bilaterally, clear oropharynx. Patient reports that his sugars have been fine on his Dexcom. Differential includes but is not limited to dehydration, electrolyte derangement, ear infection, migraine headache, tension headache, intracranial pathology. Given patient history, exam and workup, patient's presentation most likely represents dehydration given his recent diarrhea and increased exertion in a hot environment. I had extensive discussion with patient regarding his presentation. No evidence of acute infection or evidence of more serious pathology. Recommended that if his symptoms do not improve with rehydration and rest that he return for further evaluation. Patient was agreeable to plan and was discharged in stable condition. Procedures Risk/Benefits of Procedure(s) Were Explained: Yes Critical Care Critical Care Time Critical Care Time: No
[2023-11-20 02:06] VITALS: BP 151/110; PULSE 87; RESP 18; TEMP 36.8; O2SAT 98
== END 2023-11-20 02:07 | disposition home or self-care (01) ==
PROVIDERS: Emergency Provider Emergency Medicine; PCP Nurse Practitioner Family
DX: R42 Dizziness and giddiness (principal); R19.7 Diarrhea, unspecified; R51.9 Headache, unspecified; H92.02 Otalgia, left ear; E10.9 Type 1 diabetes mellitus without complications; Z79.4 Long term (current) use of insulin
CPT/HCPCS: 99282

== ENCOUNTER 2025-04-27 05:25 | Emergency (ER) | payer BC, SELFPAY ==
--- OUTSIDE RECORDS SUMMARY | 1998-07-16 | XMS_ITS | Encounter Summary ---
Author Organization [facility] Address [address] [place] [address] Care Team Providers Care Near East Archeology Professor Name Role Phone Unavailable Primary Care Provider Unavailabl e Encounter Details Date Type Department Care Team (Late st Contact Info) Description 07/16/1998 Hospital Encounter [facility] Division of Diabetes and Endocrinology [address] [place] [phone] Social History Tobacco Use Types Packs/Day Years Used Date Smoking Tobacco: Former Smokeless Tobacco: Current Chew Alcohol Use Standard Drinks/Week Comments No 0 (1 standard drink = 0.6 oz pur e alcohol) Sex and Gender Information Value Date Recorded Sex Assigned at Not on file Legal Sex Male 5:25 AM EST Gender Identity Not on file Sexual Orientation Not on file documented as of this encounter Plan of Treatment Not on file documented as of this encounter Visit Diagnoses Not on filedocumented in this encounter
--- OUTSIDE RECORDS SUMMARY | 1998-09-29 23:00 | XMS_ITS | Encounter Summary ---
Author Organization [facility] Address [address] [place] [address] Care Team Providers Care Transportation Services Representative Name Role Phone Unavailable Primary Care Provider Unavailabl e Encounter Details Date Type Department Care Team (Late st Contact Info) Description 09/30/1998 Hospital Encounter [facility] Division of Diabetes and Endocrinology [address] [place] [phone] Social History Tobacco Use Types Packs/Day [...]
--- OUTSIDE RECORDS SUMMARY | 1999-05-14 | XMS_ITS | Encounter Summary ---
Author Organization [facility] Address [address] [place] [address] Care Team Providers Care Centrifugal Spinner Name Role Phone Unavailable Primary Care Provider Unavailabl e Encounter Details Date Type Department Care Team (Late st Contact Info) Description 05/14/1999 Hospital Encounter [facility] Division of Diabetes and Endocrinology [address] [place] [phone] Social History Tobacco Use Types Packs/Day [...]
--- OUTSIDE RECORDS SUMMARY | 1999-08-24 23:00 | XMS_ITS | Encounter Summary ---
Author Organization [facility] Address [address] [place] [address] Care Team Providers Care Printer Machine Name Role Phone Unavailable Primary Care Provider Unavailabl e Encounter Details Date Type Department Care Team (Late st Contact Info) Description 08/25/1999 Hospital Encounter [facility] Division of Diabetes and Endocrinology [address] [place] [phone] Social History Tobacco Use Types Packs/Day [...]
--- OUTSIDE RECORDS SUMMARY | 1999-12-16 23:00 | XMS_ITS | Encounter Summary ---
Author Organization [facility] Address [address] [place] [address] Care Team Providers Care Flame Cutting Supervisor Name Role Phone Unavailable Primary Care Provider Unavailabl e Encounter Details Date Type Department Care Team (Late st Contact Info) Description 12/17/1999 Hospital Encounter [facility] Division of Diabetes and Endocrinology [address] [place] [phone] Social History Tobacco Use Types Packs/Day [...]
--- OUTSIDE RECORDS SUMMARY | 2001-09-13 23:00 | XMS_ITS | Encounter Summary ---
Author Organization [facility] Address [address] [place] [address] Care Team Providers Care Traveling Accountant Name Role Phone Unavailable Primary Care Provider Unavailabl e Encounter Details Date Type Department Care Team (Late st Contact Info) Description 09/14/2001 Hospital Encounter [facility] Division of Diabetes and Endocrinology [address] [place] [phone] Social History Tobacco Use Types Packs/Day [...]
--- OUTSIDE RECORDS SUMMARY | 2002-06-05 | XMS_ITS | Encounter Summary ---
Author Organization [facility] Address [address] [place] [address] Care Team Providers Care Assistant Clinical Director Name Role Phone Unavailable Primary Care Provider Unavailabl e Encounter Details Date Type Department Care Team (Late st Contact Info) Description 06/05/2002 Hospital Encounter [facility] Division of Diabetes and Endocrinology [address] [place] [phone] Social History Tobacco Use Types Packs/Day [...]
--- OUTSIDE RECORDS SUMMARY | 2003-05-28 | XMS_ITS | Encounter Summary ---
Author Organization [facility] Address [address] [place] [address] Care Team Providers Care Fitter'S Assistant Name Role Phone Unavailable Primary Care Provider Unavailabl e Encounter Details Date Type Department Care Team (Late st Contact Info) Description 05/28/2003 Hospital Encounter [facility] Division of Diabetes and Endocrinology [address] [place] [phone] Social History Tobacco Use Types Packs/Day [...]
--- OUTSIDE RECORDS SUMMARY | 2004-03-16 23:00 | XMS_ITS | Encounter Summary ---
Author Organization [facility] Address [address] [place] [address] Care Team Providers Care Rehabilitation Team Lead Name Role Phone Unavailable Primary Care Provider Unavailabl e Encounter Details Date Type Department Care Team (Late st Contact Info) Description 03/17/2004 Hospital Encounter [facility] Division of Diabetes and Endocrinology [address] [place] [phone] Social History Tobacco Use Types Packs/Day [...]
--- OUTSIDE RECORDS SUMMARY | 2004-06-18 | XMS_ITS | Encounter Summary ---
Author Organization [facility] Address [address] [place] [address] Care Team Providers Care Administrator Pesticide Name Role Phone Unavailable Primary Care Provider Unavailabl e Encounter Details Date Type Department Care Team (Late st Contact Info) Description 06/18/2004 Hospital Encounter [facility] Division of Diabetes and Endocrinology [address] [place] [phone] Social History Tobacco Use Types Packs/Day [...]
--- OUTSIDE RECORDS SUMMARY | 2004-09-25 23:00 | XMS_ITS | Encounter Summary ---
Author Organization [facility] Address [address] [place] [address] Care Team Providers Care Automotive Painter Helper Name Role Phone Unavailable Primary Care Provider Unavailabl e Encounter Details Date Type Department Care Team (Late st Contact Info) Description 09/26/[address] [facility] Division of Diabetes and Endocrinology [address] [place] [phone] Social History Tobacco Use Types Packs/Day [...]
--- OUTSIDE RECORDS SUMMARY | 2005-12-27 23:00 | XMS_ITS | Encounter Summary ---
Author Organization [facility] Address [address] [place] [address] Care Team Providers Care Glaze Grinder Name Role Phone Unavailable Primary Care Provider Unavailabl e Encounter Details Date Type Department Care Team (Late st Contact Info) Description 12/28/2005 Hospital Encounter [facility] Division of Diabetes and Endocrinology [address] [place] [phone] Social History Tobacco Use Types Packs/Day [...]
--- OUTSIDE RECORDS SUMMARY | 2006-01-08 23:00 | XMS_ITS | Encounter Summary ---
Author Organization [facility] Address [address] [place] [address] Care Team Providers Care Manual Writer Name Role Phone Unavailable Primary Care Provider Unavailabl e Encounter Details Date Type Department Care Team (Late st Contact Info) Description 01/09/2006 Hospital Encounter [facility] Division of Orthopaedics [address] [place] [phone] Social History Tobacco Use Types Packs/Day [...]
--- OUTSIDE RECORDS SUMMARY | 2006-01-26 23:00 | XMS_ITS | Encounter Summary ---
Author Organization [facility] Address [address] [place] [address] Care Team Providers Care Fiberglass Roller Name Role Phone Unavailable Primary Care Provider Unavailabl e Encounter Details Date Type Department Care Team (Late st Contact Info) Description 01/27/2006 Hospital Encounter [facility] Division of Orthopaedics [address] [place] [phone] Social History Tobacco Use Types Packs/Day [...]
--- OUTSIDE RECORDS SUMMARY | 2006-02-17 23:00 | XMS_ITS | Encounter Summary ---
Author Organization [facility] Address [address] [place] [address] Care Team Providers Care Billing Specialist Name Role Phone Unavailable Primary Care Provider Unavailabl e Encounter Details Date Type Department Care Team (Late st Contact Info) Description 02/18/2006 Hospital Encounter [facility] Division of Orthopaedics [address] [place] [phone] Social History Tobacco Use Types Packs/Day [...]
--- OUTSIDE RECORDS SUMMARY | 2006-03-10 23:00 | XMS_ITS | Encounter Summary ---
Author Organization [facility] Address [address] [place] [address] Care Team Providers Care Flight Attendant/Inflight Manager Name Role Phone Unavailable Primary Care Provider Unavailabl e Encounter Details Date Type Department Care Team (Late st Contact Info) Description 03/11/2006 Hospital Encounter [facility] Division of Orthopaedics [address] [place] [phone] Social History Tobacco Use Types Packs/Day [...]
--- OUTSIDE RECORDS SUMMARY | 2006-03-22 | XMS_ITS | Encounter Summary ---
Author Organization [facility] Address [address] [place] [address] Care Team Providers Care Retail Sales Director Name Role Phone Unavailable Primary Care Provider Unavailabl e Encounter Details Date Type Department Care Team (Late st Contact Info) Description 03/22/2006 Hospital Encounter [facility] Division of Orthopaedics [address] [place] [phone] Social History Tobacco Use Types Packs/Day [...]
--- OUTSIDE RECORDS SUMMARY | 2006-05-06 | XMS_ITS | Encounter Summary ---
Author Organization [facility] Address [address] [place] [address] Care Team Providers Care Ecommerce Merchandising Manager Name Role Phone Unavailable Primary Care Provider Unavailabl e Encounter Details Date Type Department Care Team (Late st Contact Info) Description 05/06/2006 Hospital Encounter [facility] Division of Orthopaedics [address] [place] [phone] Social History Tobacco Use Types Packs/Day [...]
--- OUTSIDE RECORDS SUMMARY | 2006-05-06 | XMS_ITS | Encounter Summary ---
Author Organization [facility] Address [address] [place] [address] Care Team Providers Care Shellfish Processing Laborer Name Role Phone Unavailable Primary Care Provider Unavailabl e Encounter Details Date Type Department Care Team (Late st Contact Info) Description 05/06/2006 Hospital Encounter [facility] Division of Diabetes and Endocrinology [address] [place] [phone] Social History Tobacco Use Types Packs/Day [...]
--- OUTSIDE RECORDS SUMMARY | 2006-12-02 23:00 | XMS_ITS | Encounter Summary ---
Author Organization [facility] Address [address] [place] [address] Care Team Providers Care Plan Manager Name Role Phone Unavailable Primary Care Provider Unavailabl e Encounter Details Date Type Department Care Team (Late st Contact Info) Description 12/03/2006 Hospital Encounter [facility] Division of Diabetes and Endocrinology [address] [place] [phone] Social History Tobacco Use Types Packs/Day [...] on file documented as of this encounter Procedures Procedure Name Priority Date/Time Associated Diagnosis Comments HGBA1C BST Routine 12/03/2006 10:35 AM EDT documented in this encounter Results * (ABNORMAL) HGBA1C BST (12/03/2006 10:35 AM EDT) HGB A1C BST 8.9(H) 3.5 - 6.3 % [facility] Comment: (07/04/99 -- Current) IF RESULT IS < 2.5 OR > 14.0, PHYSICIAN MAY ELECT TO ORDER A HGB A1C BY HPLC FOR A QUANTITATIVE RESULT. THE QUANTITATION REQUIRES A VENOUS BLOOD COLLECTION. 12/03/2006 10:3 5 AM EDT 12/03/2006 10:35 AM EDT us Jimbo Herron MD POINT OF CARE TESTING Final Result [facility] documented in this encounter Visit Diagnoses Not on filedocumented in this encounter
--- NOTE | 2025-04-27 05:24 | ECG_ITS ---
APPROVED REPORT Exam: Resting ECG HR:81 bpm ECG Measurements Heart Rate 81 AXES VT 146 P 61 QRSd 93 QRS 85 QT 345 T 17 QTc 382 Conclusion SINUS RHYTHM NORMAL ECG Electronically signed by : SHIVANI CASTILLO, 05/03/2025 03:18:53
[2025-04-27 05:26] VITALS: BP 152/100; PULSE 91; RESP 14; TEMP 36.6; O2SAT 98; BMI 29.8
--- NOTE | 2025-04-27 05:27 | XR_ITS ---
PROCEDURE INFORMATION: Exam: XR Chest Exam date and time: 04/27/2025 5:39 AM Age: 35 years old Clinical indication: Pain; Chest pressure; Additional info: Chest pain TECHNIQUE: Imaging protocol: Radiologic exam of the chest. Views: 1 view. COMPARISON: CR XR CHEST PORTABLE 06/01/2023 5:37 PM FINDINGS: Lungs: Unremarkable. No consolidation. Pleural spaces: Unremarkable. No pleural effusion. No pneumothorax. Heart/Mediastinum: Unremarkable. No cardiomegaly. Bones/joints: Unremarkable. IMPRESSION: No acute findings.
[2025-04-27 05:30] VITALS: PULSE 91
[2025-04-27 05:39] LABS: Hematocrit 46.2 % (42.0-52.0); Hemoglobin 16.4 g/dL (14.1-18.0); Immature Granulocytes % 0.6 %; Mean Corpuscular HGB Conc 35.5 g/dL (31.8-35.4); Mean Corpuscular Hemoglobin 30.9 pg (27.0-31.2); Mean Corpuscular Volume 87.2 fl (80-94); Nucleated Red Blood Cells % 0 %; Platelet Count 263 K/mm3 (142-424); Red Blood Count 5.30 M/mm3 (4.60-6.20); Red Cell Distribution Width-SD 36.7 fL; White Blood Count 5.0 K/mm3 (4.8-10.8)
[2025-04-27] MEDS: ASPIRIN 81MG CHEWABLE TABLET 324 MG PO (05:40)
[2025-04-27] MEDS: BELLADONNA ALKALOIDS 60 ML ML PO (05:41)
[2025-04-27] MEDS: ACETAMINOPHEN 500MG TAB 1000 MG PO (05:41)
--- NOTE | 2025-04-27 05:46 | HMH.EDGENADL ---
Discharge Plan Disposition Patient Disposition: Home, Self-Care Prescriptions Prescriptions: No Action insulin lispro [Humalog Floyd KwikPen U-100] 100 unit/mL insulin pen, half-unit 32 unit SUB-Q QHS azithromycin 250 mg tablet See Rx Instructions PO .COMPLEX Qty: 6 0RF Rx Instructions: For 250 mg dose pack: take 500 mg today (day 1), then 250 mg for 4 days (days 2-5) PO guaifenesin [Mucinex] 1,200 mg tablet extended release 12hr 1,200 mg PO BID Qty: 20 0RF lisinopril 2.5 mg tablet 2.5 mg PO DAILY Patient Comments: TAKE 1 TABLET BY MOUTH ONCE DAILY Referrals Follow up/Referrals: Ya Capps APRN [Primary Care Provider, Medical] - See instructions Activity Restrictions/Add. Instructions Additional Instructions/Restrictions: Please follow-up with your primary care provider. Please return to the emergency department if you develop any new or worsening symptoms or become concerned for your health. Clinical Impressions Clinical Impression: Chest pain Print Language Print Language: Greenlandic Discharge ED Provider: Eron Berger General Adult HPI General Chief complaint: Chest Pain Stated complaint: CP Time Seen by Provider: 04/27/25 05:25 Mode of Arrival: Ambulatory Source of Information: Patient Description of Symptoms (Recalled from ER Triage Doc. by RN): Pt reports CP to center of chest without radiation that began at approx 2300 on 04/26/2025. Pt rates pain 6/10 that is a constant ache. History of Present Illness HPI narrative: 35-year-old history of type 1 diabetes presents for chest pain. Reports that central in nature, has been going on since approximate 11:00 last night. Approximately 6 out of 10. Constant ache. Nothing like this has happened before. He does have a history of blood clot previously, reportedly in my stomach . No cardiac history. Related Data Home Medications ?Medication ?Instructions ?Recorded ?Confirmed insulin lispro 100 unit/mL 32 unit SQ QHS 02/09/20 10/13/24 subcutaneous half-unit pen (Humalog Floyd KwikPen (U-100)) lisinopril 2.5 mg tablet 2.5 mg PO DAILY 09/11/23 10/13/24 Previous Rx's ?Medication ?Instructions ?Recorded azithromycin 250 mg tablet See Rx Instructions PO .COMPLEX #6 10/13/24 tabs guaifenesin 1,200 mg tablet, 1,200 mg PO BID #20 tabs 10/13/24 extended release 12 hr (Mucinex) Allergies Allergy/AdvReac Type Severity Reaction Status Date / Time No Known Allergies Allergy Verified 10/13/24 15:52 [facility] Disclaimer: The information contained in this section may have been updated after the patient was seen, as this information can be updated by other users. Medical History (Updated 04/27/25 @ 06:26 by Eron Berger MD) Sinusitis Type 1 diabetes mellitus Social History Smoking Status: Former smoker alcohol intake: never substance use type: denies use current occupational status: employed and disabled Travel in the last 8 weeks?: Inside the [place] Other Medical History Have you received the Flu Vaccine for this season: No Have you received the Pneumonia Vaccine: No ROS Obtained: Yes All systems reviewed & no additional complaints except as documented Physical Exam General General appearance: alert and in no apparent distress Head Head exam: atraumatic and normocephalic Eye Eye exam: Present normal appearance, PERRL and EOMI ENT ENT exam: Present normal oropharynx and normal external ear exam Neck Neck exam: Present normal inspection and full ROM Chest Chest inspection: Present normal inspection and symmetric chest wall rise; Absent tenderness Respiratory Respiratory exam: Present normal lung sounds bilaterally; Absent respiratory distress Cardiovascular Cardiovascular exam: Present regular rate and normal rhythm Abdominal Exam Abdominal exam: Present soft; Absent distention, tenderness or guarding Extremities Exam Extremities exam: Present normal inspection; Absent edema or joint swelling Back Exam Back exam: Present normal inspection; Absent tenderness Neurological Exam Neurological exam: Present alert and oriented X3; Absent motor sensory deficit Psychiatric Psychiatric exam: Present normal affect and normal mood Skin Skin exam: Present warm, dry and normal color Lymphatic Lymphatic Findings: no adenopathy Medical Decision Making Medical Records Medical records reviewed: Yes I reviewed the patient's medical records. Screening: Per USPSTF and CDC recommendations, given the prevalence of disease in our region, it is our hospital?s policy to screen for HIV and viral Hepatitis for all patients aged 18 and over and those with ongoing risk factors. Bird Inquiry Pt receiving controlled substance: No Bird was queried for this patient: No Vital Signs: 04/27/25 05:26 04/27/25 05:30 Temperature 97.8 F Temperature Source Oral Pulse Rate 91 H Pulse Rate [Left] 91 H Respiratory Rate 14 Blood Pressure [Right Arm] 152/100 H Blood Pressure Mean [Right Arm] 117 Blood Pressure Source [Right Arm] Automatic Cuff Blood Pressure Position [Right Arm] Sitting 02 Sat by Pulse Oximetry 98 Oxygen Delivery Method Room Air Lab Data Lab results reviewed: Yes I reviewed the patient's lab results. Lab Results 04/27/25 05:30: WBC 5.0, RBC 5.30, Hgb 16.4, Hct 46.2, MCV 87.2, MCH 30.9, MCHC 35.5 H, RDW 11.4 L, Plt Count 263, MPV 9.5, Neut % (Auto) 46.0, Lymph % (Auto) 43.7, [place] % (Auto) 7.5, Eos % (Auto) 1.4, Baso % (Auto) 0.8, Neut # (Auto) 2.3, Lymph # (Auto) 2.2, [place] # (Auto) 0.4, Eos # (Auto) 0.1, Baso # (Auto) 0.0, D-Dimer 0.56 H, Sodium 132 L, Potassium 3.8, Chloride 101, Carbon Dioxide 26, Anion Gap 8.8, BUN 13, Creatinine 0.90, Estimated Creat Clear 139, Estimated GFR 97, Est GFR ( Amer) 118, Glucose 189 H, Calcium 9.4, Total Bilirubin 0.7, AST 27, ALT 29, Alkaline Phosphatase 89, Troponin I < 0.01, Total Protein 7.2, Albumin 4.3, Globulin 2.9, Albumin/Globulin Ratio 1.5, Lipase 32 04/27/25 05:30 04/27/25 05:30 Orders (Tests/Meds): ED MEDICATIONS Discontinued Medications Generic Name Dose Route Start Last Admin Trade Name Freq PRN Reason Stop Dose Admin Acetaminophen 1,000 mg 04/27/25 05:27 04/27/25 05:41 Acetaminophen 500mg Tab PO 04/27/25 05:28 1,000 mg ONCE ONE Administration Aspirin 324 mg 04/27/25 05:27 04/27/25 05:40 Aspirin 81mg Chewable Tablet PO 04/27/25 05:28 324 mg ONCE ONE Administration Belladonna Alkaloids 60 ml 04/27/25 05:27 04/27/25 05:41 Belladonna Alkaloids 60 Ml Ml PO 04/27/25 05:28 60 ml ONCE ONE Administration ORDERS Category Date Time Status CXR --portable [XR chest portable] Stat Exams 04/27/25 05:27 Taken CBC w/Auto Diff [Complete Blood Count Auto Diff] Stat Lab 04/27/25 05:30 Completed CMP [Comprehensive Metabolic Panel] Stat Lab 04/27/25 05:30 Completed D-Dimer Stat Lab 04/27/25 05:30 Completed Lipase Stat Lab 04/27/25 05:30 Completed Troponin I Q3H Lab 04/27/25 05:30 Completed Troponin I Q3H Lab 04/27/25 08:30 Ordered ECG Data Tracing #1: I reviewed this ECG and interpreted as documented below: ECG initial impression date: 04/27/25 ECG initial impression time: 05:24 ECG normal with no acute: arrhythmias, ischemia, conduction abnormalities, chamber hypertrophy HEART Score History (anamnesis): Slightly suspicious ECG: Normal Age: <45 years Risk factors: 1-2 risk factors Troponin: </= normal limit HEART Score: 1 Medical Decision Narrative: 35-year-old male with history of type 1 diabetes presents for chest pain since yesterday. History was obtained via interactive discussion with patient, chart review. On arrival, patient is [afebrile, hemodynamically stable, satting appropriately, alert, oriented x4, GCS 15], moving all extremities spontaneously. Full physical exam performed and significant for no significant physical exam abnormalities Differential includes but is not limited to ACS, PE, musculoskeletal chest pain, GERD, pleurisy, pneumothorax. Patient was given aspirin, Tylenol, GI cocktail for symptomatic management and correction of underlying abnormalities. Workup initiated including CBC CMP troponin D-dimer chest x-ray EKG. On re-evaluation, patient reports complete symptomatic resolution after GI cocktail. Laboratory workup independently interpreted by me and significant for negative initial troponin, negative D-dimer by years criteria, no other significant abnormality. Imaging independently interpreted by me and significant for clear lungs bilaterally. See radiology read for full review of final results. EKG independently interpreted by me and significant for normal sinus rhythm. Repeat troponin was considered, but deemed unnecessary due to low heart score, normal EKG, negative initial troponin, duration of pain, likely GI source. Given patient history, exam and workup, patient's presentation most likely represents GERD. These findings were communicated with patient and he was discharged in stable condition. Return precautions were given. Procedures Risk/Benefits of Procedure(s) Were Explained: Yes Critical Care Critical Care Time Critical Care Time: No
[2025-04-27 05:47] LABS: Alanine Aminotransferase 29 U/L (12-78); Albumin Level 4.3 g/dl (3.5-5.0); Albumin/Globulin Ratio 1.5 (1.1-1.8); Alkaline Phosphatase 89 U/L (38-126); Anion Gap 8.8 mEq/L (5-15); Aspartate Amino Transferase 27 U/L (17-59); Bilirubin,Total 0.7 mg/dl (0.2-1.3); Blood Urea Nitrogen 13 mg/dl (9-20); Calcium 9.4 mg/dl (8.4-10.2); Carbon Dioxide 26 mmol/L (22.0-30.0); Chloride 101 mmol/L (98-107); Creatinine Clearance Estimated 139 mL/min (50-200); Creatinine,Serum 0.90 mg/dl (0.66-1.25); Estimated Glomerular Filt Rate 97 ml/min (>60); GFR (African American) 118 ML/MIN (>60); Globulin 2.9 g/dL (1.3-3.2); Glucose 189 mg/dl (74-100); Lipase 32 U/L (23-300); Potassium 3.8 mmoL/L (3.5-5.1); Sodium 132 mmol/L (136-145); Total Protein,Serum 7.2 g/dl (6.3-8.2)
[2025-04-27 05:51] LABS: D-Dimer 0.56 ug/mL (0.0-0.5)
[2025-04-27 06:01] LABS: Troponin I < 0.01 ng/ml (0.00-0.034)
[2025-04-27 06:23] VITALS: BP 148/89; PULSE 88; RESP 16; TEMP 36.9; O2SAT 98
--- OUTSIDE RECORDS SUMMARY | 2025-04-27 06:28 | XMS_ITS | Clinical Summary ---
Author Organization [facility] Address [address] [place] [address] Care Team Providers Care Back Tacker Name Role Phone Anil Harmon MD Primary Care Provider + Source Comments [facility] is fully rolled out with thefollowing exceptions:General Clinical Research [facility] Allergies No known active allergies Medications Blood Glucose Monitoring Suppl (FREESTYLE LITE) DEVIIndications: Type 1 diabetes mellitus, uncontrolled Use as directed to test blood glucose 1 Device 0 10/27/19 13 Active Blood Glucose Calibration (FREESTYLE CONTROL SOLUTION) LIQDIndications: T1DM (type 1 diabetes mellitus) Use as directed to test accuracy of blood glucose test strips or meter as needed. 1 Bottle 3 01/31/20 13 Active acetone (urine) test strip (KETOSTIX)Indica tions:T1DM (type 1 diabetes mellitus),Diabet es mellitus,Type 1 diabetes mellitus, uncontrolled Use as directed to test urine for ketones if blood glucose is 240 mg/dl or higher or if patient is sick. May use up to 2-3 times a day. 50 Strip 11 05/23/20 14 Active insulin aspart (NovoLOG) 100 UNIT/ML injection vialIndications: T1DM (type 1 diabetes mellitus),Diabet es mellitus,Type 1 diabetes mellitus, uncontrolled Variable dose -Use as directed by physician up to 100 unit(s) per day. Dx Code 250.01. 3 Vial 11 09/22/19 15 Active Alcohol Swabs (ALCOHOL PREP) 70 % PADSIndications: Type 1 diabetes mellitus, uncontrolled Use as directed to cleanse skin prior to BG test or insulin administration.. 300 Each 10/05/19 Active BD INSULIN SYRINGE ULTRAFINE 31G X 10/06 1 ML miscellaneousInd ications:Type 1 diabetes mellitus, uncontrolled Use as directed by physician to administer insulin up to 7 x per day.. 200 Each 10/05/19 Active FREESTYLE LANCETS MISCIndications: Type 1 diabetes mellitus, uncontrolled Use as directed to test blood glucose levels up to 6 x per day and as needed.. 200 Each 10/05/19 15 Active FREESTYLE LITE stripIndications :Type 1 diabetes mellitus, uncontrolled Use as directed to test blood glucose up to 6 x per day and as needed.. 200 Strip 10/05/19 Active GLUCAGON EMERGENCY 1 MG injection kitIndications:T ype 1 diabetes mellitus, uncontrolled Dispense brand name Glucagon Emergency Kit. Use as instructed for low blood sugar. Mix and administer 1 mg intramuscularly as instructed.. 2 Kit 10/05/19 Active insulin glargine (LANTUS) 100 UNIT/ML injection vialIndications: Type 1 diabetes mellitus, uncontrolled Administer up to 30 times per day. Dose may be adjusted by physician.. 1 Vial 10/05/19 Active Active Problems Problem Noted Date Diagnosed Date High triglycerides 01/22/2013 Overview (01/22/2013): 301 mg/dl, March 2011; 235 mg/dl July 2012 Low HDL (under 40) 01/22/2013 Overview (01/22/2013): 38 mg/dl, March 2011; 41 mg/dl, July 2012 Counseling for transition fr pediatric to adult care provider 04/12/2012 Overview (10/29/2014): Diabetes Transition Planning Completed readiness assessment: Yes Yes - comments: 10/04/[address]: Yes Yes - comments: 10/04/14: Pt to return to [facility] one more time; He plans to call [facility] to inquire about how to make appointments, tentatively for 6 months from now. Assessment & Plan (01/30/2013 3:24 PM EDT): 01/30/13- Patient expressed interest in transition his care to an adult provider however he does not want to make the transition until his [facility] medicaid insurance coverage resume in May 2013. Diabetes Transition Planning Completed readiness assessment: No Transition Plan in Place: Yes Yes - comments: Will transition to once he resume his insurance coverage. Transfer complete?: No Type 1 diabetes mellitus, uncontrolled 2 Immunizations Immunization Administration Dates Next Due Influenza Vaccine 0.5 mL - f or patients 6 months and older 02/19/2014,03/01/2012,04/09/2011 Family History Medical History Relation Name Comments Cancer Father lung Diabetes Type 1 Maternal Aunt Myocardial Infarction Maternal Grandfather Diabetes Type 2 Maternal Grandmother Depression Mother Hyperlipidemia Mother Hypothyroidism Mother Other Mother blood clot Diabetes Type 2 Other MGGM Other Paternal Grandmother stopped eating after son's Relation Name Status Comments Father Maternal Aunt Maternal Grandfather (Age 35) Maternal Grandmother Alive Mother Alive Other MGGM Alive Paternal Grandfather unknown history Paternal Grandmother Social History Tobacco Use Types Packs/Day Years Used Date Smoking Tobacco: Former Smokeless Tobacco: Current Chew Alcohol Use Standard Drinks/Week Comments No 0 (1 standard drink = 0.6 oz pur e alcohol) Sex and Gender Information Value Date Recorded Sex Assigned at Not on file Legal Sex Male 5:25 AM EST Gender Identity Not on file Sexual Orientation Not on file Last Filed Vital Signs Vital Sign Reading Time Taken Comments Blood Pressure 120/80 12/13/2014 2:47 PM EDT Pulse 96 12/13/2014 2:18 PM EDT Temperature - - Respiratory Rate 24 12/13/2014 2:18 PM EDT Oxygen Saturation - - Inhaled Oxygen Concentration - - Weight 56.4 kg (124 lb 5.4 oz) 12/13/2014 2:47 P M EDT Height 170.8 cm (5' 7.24 ) 12/13/2014 2:47 PM ED T Body Mass Index 19.33 12/13/2014 2:47 PM EDT Plan of Treatment Health Maintenance Due Date Last Done Comments MMR IMMUNIZATION (1 of 1 - Standard series) 1993 DTAP/Tdap/Td IMMUNIZATION (1 - Tdap) 1999 Yearly Physical Ages 3-18+ 2003 VARICELLA IMMUNIZATION (1 of 2 - 13+ 2-dose series) 2005 HEPATITIS B IMMUNIZATION (1 of 3 - 19+ 3-dose series) 2011 HPV IMMUNIZATION (1 - 3-dose SCDM series) 2019 AMB SEASONAL FLU VACCINE (#1) 01/22/2025, 03/01/2012, 04/09/2011 COVID-19 Vaccine (1 - 2024-2 6 season) 2025 HIB IMMUNIZATION Aged Out No longer e ligible based on patient's age to complete this topic IPV IMMUNIZATION Aged Out No longer e ligible based on patient's age to complete this topic MCV4 IMMUNIZATION Aged Out No longer eligible based on patient's age to complete this topic MENINGOCOCCAL B VACCINE Aged Out No l onger eligible based on patient's age to complete this topic PNEUMOCOCCAL IMMUNIZATION Aged Out No longer eligible based on patient's age to complete this topic Respiratory Syncytial Virus (RSV) <20mo Aged Out No longer eligible b ased on patient's age to complete this topic Insurance [facility] Back Tacker Relationship Specialty Start Date End Date Anil Harmon MD [address] [place] [address] PCP - General 12/24/09
--- OUTSIDE RECORDS SUMMARY | 2025-04-27 06:28 | XMS_ITS | Continuity of Care Document ---
Author Organization BRITT Bess Jacobson [facility] Address [address] [facility] [address] [facility] [place] [address] Assessment No assessment recorded. Plan of Treatment Reminders Order Date Submit Date Provider Last Modified By Organization Details Last Modified Time Details Appointments Diabetic F/U 2024 09:00A Abhinav Capps, SHAUN Not available Not available Not available Lab vitamin D, 25-hydrox y, total, serum 2024 025 [facility], [address], [address], [place], [address], 01/31/2025 14:08:34 HbA1c (hemoglob in A1c), blood 2024 025 [facility], [address], [address], [place], [address], 01/31/2025 14:08:34 CBC w/ auto diff 2024 025 [facility], [address], [address], [place], [address], 01/31/2025 14:08:32 TSH + free T4, serum 2024 025 [facility], [address], [address], [place], [address], 01/31/2025 14:08:31 lipid panel, serum 2024 025 [facility], [address], [address], [place], [address], 01/31/2025 14:08:33 albumin/c reatinine , mass ratio, urine 2024 025 [place] [facility], [address], [address], [place], [address], 01/31/2025 14:08:33 Referral None recorded. Procedures None recorded. Surgeries None recorded. Imaging None recorded. Medication Orders None recorded. Patient TargetsNo targets recorded. Patient InstructionsNo instructions recorded. Reason for Referral None Reported. Results Created Date Observation Date Name Description Value Unit Range Abnormal Flag Note LastModifiedBy Organization Detail LastModifiedTime 01/31/2001/31/2025 TSH+F REE T4 TSH 4.560 uIU/m L 0.450- 4.500 above high normal Not Available [facility] ([facility]) [address] [place], [address], 01/31/2025 14:08:31 01/31/2001/31/2025 TSH+F REE T4 T4,free(dire ct) 1.12 NG/dL 0.82-1 .77 normal Not Available [facility] ([facility]) [address] [place], [address], 01/31/2025 14:08:31 01/31/2001/31/2025 CBC WITH DIFFE RENTI AL/PL ATELE T WBC 3.7 x10e3 /uL 3.4-10 .8 normal Not Available [facility] ([facility]) [address] [place], [address], 01/31/2025 14:08:32 01/31/2001/31/2025 CBC WITH DIFFE RENTI AL/PL ATELE T RBC 5.21 x10e6 /uL 4.14-5 .80 normal Not Available [facility] ([facility]) [address] [place], [address], 01/31/2025 14:08:32 01/31/2001/31/2025 CBC WITH DIFFE RENTI AL/PL ATELE T hemoglobin 16.1 g/dL 13.0-1 7.7 normal Not Available [facility] ([facility]) [address] [facility], [place], [address], 01/31/2025 14:08:32 01/31/2001/31/2025 CBC WITH DIFFE RENTI AL/PL ATELE T hematocrit 47.9 % 37.5-5 1.0 normal Not Available [facility] ([facility]) [address] [facility], [place], [address], 01/31/2025 14:08:32 01/31/2001/31/2025 CBC WITH DIFFE RENTI AL/PL ATELE T MCV 92 fL 79-97 normal Not Available [facility] ([facility]) [address] [facility], [place], [address], 01/31/2025 14:08:32 01/31/2001/31/2025 CBC WITH DIFFE RENTI AL/PL ATELE T MCH 30.9 pg 26.6-3 3.0 normal Not Available [facility] ([facility]) [address] [place], [address], 01/31/2025 14:08:32 01/31/2001/31/2025 CBC WITH DIFFE RENTI AL/PL ATELE T MCHC 33.6 g/dL 31.5-3 5.7 normal Not Available [facility] ([facility]) [address] [place], [address], 01/31/2025 14:08:32 01/31/2001/31/2025 CBC WITH DIFFE RENTI AL/PL ATELE T RDW 12.5 % 11.6-1 5.4 Not Available [facility] ([facility]) [address] [place], [address], 01/31/2025 14:08:32 01/31/20 25 01/31/2025 CBC WITH DIFFE RENTI AL/PL ATELE T platelets 266 x10e3 /uL 150-45 0 normal Not Available [facility] ([facility]) [address] [facility], [place], [address], 01/31/2025 14:08:32 01/31/20 25 01/31/2025 CBC WITH DIFFE RENTI AL/PL ATELE T neutrophils 52 % not estab. normal Not Available [facility] ([facility]) [address] [facility], [place], [address], 01/31/2025 14:08:32 01/31/20 25 01/31/2025 CBC WITH DIFFE RENTI AL/PL ATELE T lymphs 36 % not estab. normal Not Available [facility] ([facility]) [address] [facility], [place], [address], 01/31/2025 14:08:32 01/31/20 25 01/31/2025 CBC WITH DIFFE RENTI AL/PL ATELE T monocytes 9 % not estab. normal Not Available [facility] ([facility]) [address] [facility], [place], [address], 01/31/2025 14:08:32 01/31/20 25 01/31/2025 CBC WITH DIFFE RENTI AL/PL ATELE T eos 2 % not estab. normal Not Available [facility] ([facility]) [address] [facility], [place], [address], 01/31/2025 14:08:32 01/31/20 25 01/31/2025 CBC WITH DIFFE RENTI AL/PL ATELE T basos 1 % not estab. normal Not Available [facility] ([facility]) [address] [facility], [place], [address], 01/31/2025 14:08:32 01/31/20 25 01/31/2025 CBC WITH DIFFE RENTI AL/PL ATELE T immature cells ALLIANCE DIRECTOR Not Available [facility] ([facility]) [address] [place], [address], 01/31/2025 14:08:32 01/31/20 25 01/31/2025 CBC WITH DIFFE RENTI AL/PL ATELE T neutrophils (absolute) 1.9 x10e3 /uL 1.4-7. 0 normal Not Available [facility] ([facility]) [address] [place], [address], 01/31/2025 14:08:32 01/31/20 25 01/31/2025 CBC WITH DIFFE RENTI AL/PL ATELE T lymphs (absolute) 1.4 x10e3 /uL 0.7-3. 1 normal Not Available [facility] ([facility]) [address] [place], [address], 01/31/2025 14:08:32 01/31/20 25 01/31/2025 CBC WITH DIFFE RENTI AL/PL ATELE T monocytes(ab solute) 0.3 x10e3 /uL 0.1-0. 9 normal Not Available [facility] ([facility]) [address] [place], [address], 01/31/2025 14:08:32 01/31/20 25 01/31/2025 CBC WITH DIFFE RENTI AL/PL ATELE T eos (absolute) 0.1 x10e3 /uL 0.0-0. 4 normal Not Available [facility] ([facility]) [address] [place], [address], 01/31/2025 14:08:32 01/31/20 25 01/31/2025 CBC WITH DIFFE RENTI AL/PL ATELE T baso (absolute) 0.0 x10e3 /uL 0.0-0. 2 normal Not Available [facility] ([facility]) [address] [place], [address], 01/31/2025 14:08:32 01/31/20 25 01/31/2025 CBC WITH DIFFE RENTI AL/PL ATELE T immature granulocytes 0 % not estab. Not Available [facility] ([facility]) [address] [facility], [place], [address], 01/31/2025 14:08:32 01/31/20 25 01/31/2025 CBC WITH DIFFE RENTI AL/PL ATELE T immature grans (abs) 0.0 x10e3 /uL 0.0-0. 1 Not Available [facility] ([facility]) [address] [facility], [place], [address], 01/31/2025 14:08:32 01/31/20 25 01/31/2025 CBC WITH DIFFE RENTI AL/PL ATELE T NRBC ALLIANCE DIRECTOR Not Available [facility] ([facility]) [address] [facility], [place], [address], 01/31/2025 14:08:32 01/31/20 25 01/31/2025 CBC WITH DIFFE RENTI AL/PL ATELE T hematology comments: ALLIANCE DIRECTOR Not Available [facility] ([facility]) [address] [facility], [place], [address], 01/31/2025 14:08:32 01/31/20 25 01/31/2025 LIPID PANEL cholesterol, total 160 mg/dL 100-19 9 normal Not Available [facility] ([facility]) [address] [facility], [place], [address], 01/31/2025 14:08:33 01/31/20 25 01/31/2025 LIPID PANEL triglyceride s 61 mg/dL 0-149 normal Not Available [facility] ([facility]) [address] [facility], [place], [address], 01/31/2025 14:08:33 01/31/20 25 01/31/2025 LIPID PANEL HDL cholesterol 46 mg/dL >39 normal Not Available [facility] ([facility]) [address] [facility], [place], [address], 01/31/2025 14:08:33 01/31/20 25 01/31/2025 LIPID PANEL VLDL cholesterol ulices 12 mg/dL 5-40 Not Available [facility] ([facility]) [address] [place], [address], 01/31/2025 14:08:33 01/31/20 25 01/31/2025 LIPID PANEL LDL chol calc ([facility]) 102 mg/dL 0-99 above high normal Not Available [facility] ([facility]) [address] [facility], [place], [address], 01/31/2025 14:08:33 01/31/20 25 01/31/2025 LIPID PANEL LDL calc comment: ALLIANCE DIRECTOR Not Available [facility] ([facility]) [address] [facility], [place], [address], 01/31/2025 14:08:33 01/31/20 25 01/31/2025 ALBUM IN/CR EATIN INE RATIO ,URIN E creatinine, urine 226.5 mg/dL not estab. normal Not Available [facility] ([facility]) [address] [place], [address], 01/31/2025 14:08:33 01/31/20 25 01/31/2025 ALBUM IN/CR EATIN INE RATIO ,URIN E albumin, urine 8.1 ug/mL not estab. Not Available [facility] ([facility]) [address] [place], [address], 01/31/2025 14:08:33 01/31/20 25 01/31/2025 ALBUM IN/CR EATIN INE RATIO ,URIN E alb/creat ratio 4 mg/g_ creat 0-29 Shalini l: 0 - 29 Moder ately incre ased: 30 - 300 Sever denny incre ased: >300 Not Available [facility] ([facility]) [address] [facility], [place], [address], 01/31/2025 14:08:33 01/31/20 25 01/31/2025 HEMOG LOBIN A1C hemoglobin A1C 8.7 % 4.8-5. 6 above high normal Predi abete s: 5.7 - 6.4 Diabe marco: >6.4 Glyce teresa contr ol for adult s with diabe marco: <7.0 Not Available [facility] ([facility]) [address] [facility], [place], [address], 01/31/2025 14:08:34 01/31/2001/31/2025 VITAM IN D, 25-HY DROXY vitamin D, 25-hydroxy 24.9 NG/mL 30.0-1 00.0 below low normal Vitam in D defic iency has been defin ed by the Insti tute of Medic ine and an Endoc rine Socie ty pract ice guide line as a level of serum 25-OH vitam in D less than 20 ng/mL (1,2) . The Endoc rine Socie ty went on to furth er defin e vitam in D insuf ficie ncy as a level betwe en 21 and 29 ng/mL (2). 1. IOM (Inst itute of Medic ine). 2009. Dieta ry refer ence anushka es for calci um and D. Cyndi pizarro [place]: The [facility], [facility] [employer] . 2. Johnie howard [place], Michelle jones [place], Hasmukh off-F errar i BOYER, et al. Evalu ation , treat ment, and preve ntion of vitam in D defic iency : an Endoc rine Socie ty clini ulices pract ice guide line. JCEM. 2010; 96(7) :1911 -30. Not Available [facility] ([facility]) [address] [facility], [place], [address], 01/31/2025 14:08:34 Result Notes None recorded. Problems Name Problem SNOMED Code Status Onset Date Resolution Date Notes Provider Name and Address Organization Details Recorded Time Type 2 diabetes mellitus 98208543 Completed 201605/06/2017 Ignacio littlejohn, [place] - [facility] 7 11:04:25 Type 1 diabetes mellitus 07888421 Active 2016 Not Available [facility] 3 18:04:38 Diabetic ketoacidos is 510220841 Active 2017 Not Available [facility] 3 18:04:38 Vitamin D deficiency 75414003 Active 2017 Not Available [facility] 3 18:04:38 Problem Notes None recorded. Procedures Surgical History Date Name Laterality Status Provider Name and Address Organization Details Recorded Time 0 Systolic B/P less than 130 mm Hg completed Crystal Dudley [place] - [facility] 08/18/2019 13:16:53 0 Diastolic B/P 80-89 mm Hg completed Whelse Dudley [place] - [facility] 08/18/2019 13:16:55 0 Systolic B/P less than 130 mm Hg completed Whelse Dudley [place] - [facility] 08/07/2019 09:48:31 0 Diastolic B/P less than 80 mm Hg completed Evermede - [facility] 08/07/2019 09:48:33 Knee Surgery completed Ana Cabrera [email or web address] - [facility] 02/12/2017 11:50:55 Imaging Results None recorded. Procedure Notes None recorded. Medical Equipment None Reported. Allergies No known drug allergies Medications Name Sig Start Date Stop Date Status Note LastModified by Organization Details LastModified Time mucus relief max 1200mg tab TAKE 1 TABLET BY MOUTH TWICE DAILY 01/30 completed Not Available Not Available Not Available amoxicill in 500 mg capsule TAKE 1 CAPSULE BY MOUTH THREE TIMES DAILY FOR 10 DAYS 02/19 completed Not Available Not Available Not Available prednison e 10 mg tablet TAKE 1 TABLET BY MOUTH TWICE DAILY FOR 3 DAYS 02/19 completed Not Available Not Available Not Available Carafate 100 mg/mL oral suspensio n 12/24 completed Not Available Not Available Not Available azithromy nilo 250 mg tablet TAKE 2 TABLETS BY MOUTH ON DAY 1, AND THEN TAKE 1 TABLET BY MOUTH ONCE A DAY ON DAY 2 THROUGH DAY 5 active Not Available Not Available No t Available benzonata te 200 mg capsule Take 1 capsule 3 times a day by oral route for 15 days. 08/17 completed Not Available Not Available Not Available FreeStyle Lancets 28 gauge Take 1 each 4 times a day by miscell. route as directed for 30 days. active Not Available Not Available No t Available aspirin 81 mg tablet,de layed release TAKE 1 TABLET BY MOUTH ONCE DAILY 01/30 completed Not Available Not Available Not Available amoxicill in 500 mg tablet TAKE 1 TABLET BY MOUTH TWICE DAILY FOR 10 DAYS 09/05 completed Not Available Not Available Not Available benzonata te 100 mg capsule 10/28 completed Not Available Not Available Not Available simvastat in 5 mg tablet TAKE 1 TABLET BY MOUTH ONCE DAILY 02/07 completed Not Available Not Available Not Available cephalexi n 500 mg capsule take 1 capsule (500 mg) by oral route every 12 hours for 10 days 07/28 completed Not Available Not Available Not Available pantopraz ole 40 mg tablet,de layed release Take 1 tablet every day by oral route for 30 days. 12/24 completed Not Available Not Available Not Available erythromy nilo 5 mg/gram (0.5 %) eye ointment 02/12 completed Not Available Not Available Not Available Cipro 500 mg tablet take 1 tablet (500 mg) by oral route 2 times per day for 10 days 06/30 completed Cipro 500 mg oral tablet;P rescribe Status: Prescrib ed on: 06/20/19 16 4:42PM;U ser: [email or web address];Es t. Completi on: 06/30/19 16;Pharm acyVerif ied: 06/20/19 16 4:42PM Not Available Not Available Not Available Zofran ODT 8 mg disintegr ating tablet Place 1 tablet every 8 hours by translin gual route as needed for 2 days. 08/06 completed Not Available Not Available Not Available ergocalci ferol (vitamin D2) 1,250 mcg (50,000 unit) capsule Take 1 capsule every week by oral route as directed . 2024 active Not Available Not Available Not Avai lable Novolog U-100 Insulin aspart 100 unit/mL subcutane ous solution Inject 1 sliding scale dose by subcutan eous route. 08/25 completed Not Available Not Available Not Available dexametha sone sodium phosphate 4 mg/mL injection solution Inject 1 mL every day by intramus cular route. 07/28 completed Not Available Not Available Not Available insulin lispro (U-100) 100 unit/mL subcutane ous solution INJECT UNDER THE SKIN DIRECTED PER SLIDING SCALE WITH A MAX OF 80 UNITS PER DAY active Not Available Not Available No t Available brompheni ramine-ps eudoephed rine-DM 2 mg-30 mg-10 mg/5 mL oral syrup TAKE 5 ML BY MOUTH EVERY 6 HOURS NEEDED FOR COUGH 02/19 completed Not Available Not Available Not Available fluticaso ne propionat e 50 mcg/actua tion nasal spray,jackie pension USE 1 SPRAY(S) IN EACH NOSTRIL ONCE DAILY 01/30 completed Not Available Not Available Not Available lisinopri l 2.5 mg tablet TAKE 1 TABLET BY MOUTH ONCE DAILY 01/30 completed Not Available Not Available Not Available amoxicill in 875 mg-potass ium clavulana te 125 mg tablet 02/19 completed Not Available Not Available Not Available Ventolin HFA 90 mcg/actua tion aerosol inhaler Inhale 2 puffs every 4 hours by inhalati on route as needed. 02/19 completed Not Available Not Available Not Available Asprin Ec Low Dose 81 mg tablet,de layed release Take 1 tablet every day by oral route as directed . 02/19 completed Not Available Not Available Not Available Novolog FlexPen U-100 Insulin aspart 100 unit/mL (3 mL) subcutane ous Inject 1 sliding scale dose by subcutan eous route. 08/25 completed Not Available Not Available Not Available Lantus U-100 Insulin 100 unit/mL subcutane ous cartridge Inject 25 units every day by sub-q route as directed . 05/06 completed Lantus 100 unit/mL subcutan eous cartridg e;Record ed Status: Recorded on: 02/20/20 09 2:47PM;U ser: [email or web address];I ndicatio n: Type 1 Diabetes Mellitus - () Not Available Not Available Not Available FreeStyle Lite Strips Take 1 strip 4 times a day by miscell. route as directed for 30 days. active Not Available Not Available No t Available Lantus Solostar U-100 Insulin 100 unit/mL (3 mL) subcutane ous pen Inject 30 units every day by sub-q route as directed for 30 days. 02/19 completed Not Available Not Available Not Available Humalog KwikPen (U-100) Insulin 100 unit/mL subcutane ous INJECT UP TO 30 UNITS SUBCUTAN EOUSLY ONCE DAILY 07/28 completed Not Available Not Available Not Available Capmist DM 30 mg-30 mg-400 mg tablet take 1 tablet by oral route QID prn 04/07 completed Capmist DM 30-30-40 0 mg oral tablet;R ecorded Status: Recorded on: 02/20/20 09 3:19PM;D iscontin ued Status: Disconti nued on: 04/07/20 11 3:43PM;U ser: [email or web address] ;Est. Completi on: 03/12/20 09;Print ed: 02/20/20 09 Not Available Not Available Not Available Eliquis 5 mg tablet Take 1 tablet every day by oral route for 30 days. 12/24 completed Not Available Not Available Not Available Dexcom G6 Jewelry Model Maker apply 1 sensor every 10 days 07/28 completed Not Available Not Available Not Available Dexcom G6 Transmitt er device APPLY EVERY 90 DAYS 09/05 completed Not Available Not Available Not Available BD Kristie 2nd Gen Pen Needle 32 gauge x 5/32 USE 1 PEN NEEDLE UP TO 4 TIMES DAILY DIRECTED active Not Available Not Available No t Available Gvoke HypoPen 2-Pack 1 mg/0.2 mL subcutane ous auto-inje ctor Inject 1 mg as needed by subcutan eous route. active Not Available Not Available No t Available Semglee (insulin glargine- yfgn) Pen 100 unit/mL (3 mL) subcutane ous INJECT 32 UNITS SUBCUTAN EOUSLY ONCE DAILY 12/10 completed Not Available Not Available Not Available Omnipod 5 G6 Pods (Gen 5) subcutane ous cartridge USE DIRECTED active Not Available Not Available No t Available Omnipod 5 G6 Intro Kit (Gen 5) subcutane ous cartridge with controlle r USE DIRECTED CHANGING POD EVERY 3 DAYS active Not Available Not Available No t Available Dexcom G7 Sensor device APPLY ONE (1) SENSOR AND CHANGE EVERY 10 DAYS DIRECTED active Not Available Not Available No t Available Omnipod 5 G6-G7 Intro Kit(Gen 5) subcutane ous cartridge and controlle r USE DIRECTED active Not Available Not Available No t Available Omnipod 5 G6-G7 Pods (Gen 5) subcutane ous cartridge USE DIRECTED CHANGE EVERY 3 DAYS active Not Available Not Available No t Available Vitals Date Recorded Body height Body mass index (BMI) Body weight Heart rate Oxygen saturation Body temperature Respiratory rate Pain severity - 0-10 verbal numeric rating [Score] - Reported Systolic And Diastolic Provider Name and Address Organization Details Last Updated DateTime 5 162.56 cm 30.3 kg/m2 41482.0 6 g 86 /min 98 % 98.9 [degF] 18 /min 0 112/70 mm[Hg] Laly Urias [place] - [facility] 5 09:12:23 Social History Question Answer Notes LastModified by Organizat ion Details LastModified Time Tobacco Smoking Status Former Smoker Ana littlejohn, [place] - [facility] 02/12/2017 11:49:43 Able To Swim? Yes Information not available 02/12/2017 Do You Have An Advance Directive? No Information not available 12/10/2022 Do You Wear A Helmet When Biking? No Information not available 02/12/2017 Are You Blind Or Do You Have Difficulty Seeing? No Information not available 02/12/2017 What Is Your Level Of Caffeine Consumption? Moderate Information not available 07/19/2023 How Much Tobacco Do You Chew? 2-4/day Information not available 07/19/2023 In The 14 Days Before Symptom Onset, Have You Had Close Contact With A Laboratory-confir med COVID-19 While That Case Was Ill? No Information not available 12/10/2022 In The 14 Days Before Symptom Onset, Have You Had Close Contact With A Person Who Is Under Investigation For COVID-19 While That Person Was Ill? No Information not available 12/10/2022 Have You Been To An Area Known To Be High Risk For COVID-19? No Information not available 12/10/2022 Are You Deaf Or Do You Have Serious Difficulty Hearing? No Information not available 02/12/2017 What Type Of Diet Are You Following? REGULAR Information not available 07/19/2023 Which Illicit Or Recreational Drugs Have You Used? None Information not available 02/12/2017 Have You Processed Blood Or Body Fluids From An Ebola Virus Disease Patient Without Appropriate PPE? No Information not available 12/10/2022 Do You Reside In Or Have You Traveled To An Area Where Ebola Virus Transmission Is Active? No Information not available 12/10/2022 What Is The Highest Grade Or Level Of School You Have Completed Or The Highest Degree You Have Received? [id number] Information not available 07/19/2023 Swimming/diving Yes Informati on not available 02/12/2017 Have There Been Any Changes To Your Family Or Social Situation? No Information no t available 07/19/2023 What Is The Fluoride Status Of Your Home? Unknown Information not available 07/19/2023 When Did You Quit Smoking? 6-10yearssin celastcigare tte 7 Years In 2023 Information not available 07/19/2023 Hard Of Hearing Or Deaf In One Or Both Ears? No Information not available 02/12/2017 Have You Recently Or Are You Planning To Travel To An Area With Zika Virus? No Information not available 12/10/2022 Legally Blind In One Or Both Eyes? No Information no t available 02/12/2017 Live Alone Or With Others? With Others Information not available 12/24/2017 Do You Have A Medical Power Of [employer] Sheets Supervisor? No Information not available 12/10/2022 What Was The Date Of Your Most Recent Tobacco Screening? 06/23/2024 Information not available 06/23/2024 How Many Children Do You Have? 2 Information not available 12/24/2017 What Is Your Current Pack Years? 10packyears Information not available 07/19/2023 What Is Your Relationship Status? Information not available 02/12/2017 Seat Belts Used Routinely Yes Information not available 02/12/2017 Smoke Alarm In Home Yes Information not available 02/12/2017 Do You Have Smoke And Carbon Monoxide Detectors In Your Home? Yes Information not available 07/19/2023 At What Age Did You Start Smoking Tobacco? 20 Information not available 07/19/2023 How Much Tobacco Do You Smoke? No Information not available 07/19/2023 Do You Use Sunscreen Routinely? Yes Information not available 02/12/2017 Has Tobacco Cessation Counseling Been Provided? No Information not available 07/28/2022 How Many Years Have You Smoked Tobacco? 6 Stopped At Age 26 Information not available 07/19/2023 Do You Have Difficulty Walking Or Climbing Stairs? No Information not available 02/12/2017 How Many Years Have You Used Smokeless Tobacco? 7 Information not available 07/19/2023 Sex: Male Functional Status Question Answer Note LastModified by Organizat ion Details LastModified Time Do you or have you ever used smokeless tobacco? Current snuff user dip Information not available 07/19/2023 Are you currently employed? Yes Information not available 02/12/2017 Do you have transportation difficulties? No Information not available 07/19/2023 Are you able to care for yourself independently? Yes Information not available 02/12/2017 Do you have difficulty dressing, bathing, grooming, or toileting? No Information not available 02/12/2017 Do you or have you ever used e-cigarettes or vape? Never used electronic cigarettes Information not available 07/19/2023 What is your exercise level? None Information not available 07/19/2023 Do you use any illicit or recreational drugs? No Information not available 07/19/2023 Do you or have you ever used any other forms of tobacco or nicotine? Yes Information not available 07/19/2023 What is your level of alcohol consumption? None Information not available 02/12/2017 Are you able to walk independently without assistance or assistive devices? YESWOREST Information not available 12/24/2017 Do you have difficulty doing errands alone? 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 [id number] Information not available 10/29/2023 Do you have difficulty concentrating, remembering or making decisions? No Information no t available 02/12/2017 Family History Relationship Description Onset Age of this Age Resolved Age Notes LastModified by Organization Details LastModified Time Maternal Aunt Type 2 diabetes mellitus [email or web address] Not available 2016 11:49:00 Father Malignant neoplasm of brain rglascock Not available 2016 11:49:18 Father Malignant neoplasm of lung rglascock Not available 2016 11:49:29 Medical History Condition Response Diabetes Y Immunizations Vaccine Type Date Status Note Provider Name and Address Organization Details Recorded Time influenza, unspecified formulation 06/02/19 14 completed Not Available [facility] 04/20/2023 14:26:44 Influenza, split virus, quadrivalent, preservative 03/25/20 23 cancelled patient objection Ya Capps APRN [address], [place], [address], [place] - [facility] 03/25/2023 14:31:43 Tdap 02/08/20 24 cancelled patient objection Ya Capps APRN [address], [place], [address], [place] [facility] 02/10/2024 15:14:23 influenza, unspecified formulation 02/20/20 14 completed Not Available [facility] 04/14/2023 18:04:39 influenza, unspecified formulation 03/01/20 12 completed Not Available [facility] 04/14/2023 18:04:39 Influenza, split virus, trivalent, PF 04/09/20 11 completed Not Available [facility] 04/14/2023 18:04:39 Hep B, adolescent or pediatric 01/10/19 97 completed Not Available [facility] 04/14/2023 18:04:39 Past Encounters Encounter ID Performer Location Encounter Start Date Encounter Closed Date Diagnosis/Indication Diagnosis SNOMED-CT Code Diagnosis ICD10 Code Diagnosis IMO Codes Diagnosis Note [id number] Ya Capps APRN [address] [place] [address] 01/30/2025 08:57:36 01/30/2025 09:39:22 Type 1 diabetes mellitus 31692519 Z79.4 *Diabetic Measures:M etformin:n o type 1ACE/ARB:s tartedASA: startedSta tin:starte dGLP:no type 1 Vitamin D deficiency 347 51016 E55.9 Health Concerns Section Related Observation LastModified by Organization Detai ls LastModified Time None Recorded Concern Status LastModified by Organization Details LastModified Time None Recorded Payers Encounter Date Sequence Insurance Name Policy Number Policy Walker Covered Member ID Walker Member ID Guarantor Name 01/30/2025 1 [employer] [id number] A Sugar Dawson [id number] Sugar Dawson Notes Date Note Type Note Provider Name and Address Organization Details Recorded Time 01/30/2025 text/html 34 yr old male presents for a diabetes follow up. He has not been taking his lisinopril or aspirin due forgets to take med Ya Capps APRN [address], [place], [address], [place] [facility] 01/30/2025 09:31:54
--- OUTSIDE RECORDS SUMMARY | 2025-04-27 06:28 | XMS_ITS | Continuity of Care Document ---
[facility] Organization [facility] Address [address] [place] [address] Assessment No assessment recorded. Plan of Treatment Reminders Order Date Submit Date Provider Last Modified By Organization Details Last Modified Time Details Appointments Diabetic F/U 2024 09:00A Abhinav Capps APRN Not available Not available Not available Lab rapid strep group A, throat 2024 [facility], [address] [place] [address], [phone], 02/27/2025 09:36:21 rapid flu (A+B) 2024 [facility], [address] [place] [address], [phone], 02/27/2025 09:36:21 Referral None recorded. Procedures None recorded. Surgeries None recorded. Imaging None recorded. Medication Orders Zithromax Z-Kolby 250 mg tablet 2024 [facility], [address] [place], [address], 02/27/2025 09:36:27 Patient TargetsNo targets recorded. Patient Instructions Encounter Date Encounter Id Patient Instructions Last Modified By Organization Details Last Modified Time 02/27/2025 [id number] sore throat in children: care instructions [facility] Not available 02/27/2025 09:36:21 Reason for Referral None Reported. Results Created Date Observation Date Name Description Value Unit Range Abnormal Flag Note LastModifiedBy Organization Detail LastModifiedTime 01/31/2001/31/2025 TSH+F REE T4 TSH 4.560 uIU/m L 0.450- 4.500 above high normal Not Available [facility] ([facility]) [address] [place], [address], 01/31/2025 14:08:31 01/31/2001/31/2025 TSH+F REE T4 T4,free(dire ct) 1.12 NG/dL 0.82-1 .77 normal Not Available [facility] ([facility]) [address] [place], [address], 01/31/2025 14:08:31 01/31/2001/31/2025 CBC WITH DIFFE RENTI AL/PL ATELE T WBC 3.7 x10e3 /uL 3.4-10 .8 normal Not Available [facility] ([facility]) [address] [place], [address], 01/31/2025 14:08:32 01/31/2001/31/2025 CBC WITH DIFFE RENTI AL/PL ATELE T RBC 5.21 x10e6 /uL 4.14-5 .80 normal Not Available [facility] ([facility]) [address] [place], [address], 01/31/2025 14:08:32 01/31/2001/31/2025 CBC WITH DIFFE RENTI AL/PL ATELE T hemoglobin 16.1 g/dL 13.0-1 7.7 normal Not Available [facility] ([facility]) [address] [place], [address], 01/31/2025 14:08:32 01/31/2001/31/2025 CBC WITH DIFFE RENTI AL/PL ATELE T hematocrit 47.9 % 37.5-5 1.0 normal Not Available [facility] ([facility]) [address] [place], [address], 01/31/2025 14:08:32 01/31/20 25 01/31/2025 CBC WITH DIFFE RENTI AL/PL ATELE T MCV 92 fL 79-97 normal Not Available [facility] ([facility]) [address] [facility], [place], [address], 01/31/2025 14:08:32 01/31/20 25 01/31/2025 CBC WITH DIFFE RENTI AL/PL ATELE T MCH 30.9 pg 26.6-3 3.0 normal Not Available [facility] ([facility]) [address] [facility], [place], [address], 01/31/2025 14:08:32 01/31/20 25 01/31/2025 CBC WITH DIFFE RENTI AL/PL ATELE T MCHC 33.6 g/dL 31.5-3 5.7 normal Not Available [facility] ([facility]) [address] [facility], [place], [address], 01/31/2025 14:08:32 01/31/20 25 01/31/2025 CBC WITH DIFFE RENTI AL/PL ATELE T RDW 12.5 % 11.6-1 5.4 Not Available [facility] ([facility]) [address] [facility], [place], [address], 01/31/2025 14:08:32 01/31/20 25 01/31/2025 CBC WITH DIFFE RENTI AL/PL ATELE T platelets 266 x10e3 /uL 150-45 0 normal Not Available [facility] ([facility]) [address] [facility], [place], [address], 01/31/2025 14:08:32 01/31/20 25 01/31/2025 CBC WITH DIFFE RENTI AL/PL ATELE T neutrophils 52 % not estab. normal Not Available [facility] ([facility]) [address] [facility], [place], [address], 01/31/2025 14:08:32 01/31/20 25 01/31/2025 CBC WITH DIFFE RENTI AL/PL ATELE T lymphs 36 % not estab. normal Not Available [facility] ([facility]) [address] [facility], [place], [address], 01/31/2025 14:08:32 01/31/20 25 01/31/2025 CBC WITH DIFFE RENTI AL/PL ATELE T monocytes 9 % not estab. normal Not Available [facility] ([facility]) [address] [facility], [place], [address], 01/31/2025 14:08:32 01/31/20 25 01/31/2025 CBC WITH DIFFE RENTI AL/PL ATELE T eos 2 % not estab. normal Not Available [facility] ([facility]) [address] [facility], [place], [address], 01/31/2025 14:08:32 01/31/20 25 01/31/2025 CBC WITH DIFFE RENTI AL/PL ATELE T basos 1 % not estab. normal Not Available [facility] ([facility]) [address] [facility], [place], [address], 01/31/2025 14:08:32 01/31/20 25 01/31/2025 CBC WITH DIFFE RENTI AL/PL ATELE T immature cells CONSERVATION SCIENTIST Not Available [facility] ([facility]) [address] [facility], [place], [address], 01/31/2025 14:08:32 01/31/20 25 01/31/2025 CBC WITH DIFFE RENTI AL/PL ATELE T neutrophils (absolute) 1.9 x10e3 /uL 1.4-7. 0 normal Not Available [facility] ([facility]) [address] [facility], [place], [address], 01/31/2025 14:08:32 01/31/20 25 01/31/2025 CBC WITH DIFFE RENTI AL/PL ATELE T lymphs (absolute) 1.4 x10e3 /uL 0.7-3. 1 normal Not Available [facility] ([facility]) [address] [facility], [place], [address], 01/31/2025 14:08:32 01/31/20 25 01/31/2025 CBC WITH DIFFE RENTI AL/PL ATELE T monocytes(ab solute) 0.3 x10e3 /uL 0.1-0. 9 normal Not Available [facility] ([facility]) [address] [facility], [place], [address], 01/31/2025 14:08:32 01/31/2001/31/2025 CBC WITH DIFFE RENTI AL/PL ATELE T eos (absolute) 0.1 x10e3 /uL 0.0-0. 4 normal Not Available [facility] ([facility]) [address] [facility], [place], [address], 01/31/2025 14:08:32 01/31/2001/31/2025 CBC WITH DIFFE RENTI AL/PL ATELE T baso (absolute) 0.0 x10e3 /uL 0.0-0. 2 normal Not Available [facility] ([facility]) [address] [facility], [place], [address], 01/31/2025 14:08:32 01/31/2001/31/2025 CBC WITH DIFFE RENTI AL/PL ATELE T immature granulocytes 0 % not estab. Not Available [facility] ([facility]) [address] [facility], [place], [address], 01/31/2025 14:08:32 01/31/2001/31/2025 CBC WITH DIFFE RENTI AL/PL ATELE T immature grans (abs) 0.0 x10e3 /uL 0.0-0. 1 Not Available [facility] ([facility]) [address] [place], [address], 01/31/2025 14:08:32 01/31/20 25 01/31/2025 CBC WITH DIFFE RENTI AL/PL ATELE T NRBC CONSERVATION SCIENTIST Not Available [facility] ([facility]) [address] [facility], [place], [address], 01/31/2025 14:08:32 01/31/20 25 01/31/2025 CBC WITH DIFFE RENTI AL/PL ATELE T hematology comments: CONSERVATION SCIENTIST Not Available [facility] ([facility]) [address] [facility], [place], [address], 01/31/2025 14:08:32 01/31/20 25 01/31/2025 LIPID PANEL cholesterol, total 160 mg/dL 100-19 9 normal Not Available [facility] ([facility]) [address] [facility], [place], [address], 01/31/2025 14:08:33 01/31/20 25 01/31/2025 LIPID PANEL triglyceride s 61 mg/dL 0-149 normal Not Available [facility] ([facility]) [address] [facility], [place], [address], 01/31/2025 14:08:33 01/31/20 25 01/31/2025 LIPID PANEL HDL cholesterol 46 mg/dL >39 normal Not Available [facility] ([facility]) [address] [place], [address], 01/31/2025 14:08:33 01/31/20 25 01/31/2025 LIPID PANEL VLDL cholesterol ulices 12 mg/dL 5-40 Not Available [facility] ([facility]) [address] [place], [address], 01/31/2025 14:08:33 01/31/20 25 01/31/2025 LIPID PANEL LDL chol calc ([facility]) 102 mg/dL 0-99 above high normal Not Available [facility] ([facility]) [address] [place], [address], 01/31/2025 14:08:33 01/31/20 25 01/31/2025 LIPID PANEL LDL calc comment: CONSERVATION SCIENTIST Not Available [facility] ([facility]) [address] [place], [address], 01/31/2025 14:08:33 01/31/20 25 01/31/2025 ALBUM IN/CR EATIN INE RATIO ,URIN E creatinine, urine 226.5 mg/dL not estab. normal Not Available [facility] ([facility]) [address] [place], [address], 01/31/2025 14:08:33 01/31/20 25 01/31/2025 ALBUM IN/CR EATIN INE RATIO ,URIN E albumin, urine 8.1 ug/mL not estab. Not Available [facility] ([facility]) [address] [place], [address], 01/31/2025 14:08:33 01/31/20 25 01/31/2025 ALBUM IN/CR EATIN INE RATIO ,URIN E alb/creat ratio 4 mg/g_ creat 0-29 Shalini l: 0 - 29 Moder ately incre ased: 30 - 300 Sever denny incre ased: >300 Not Available [facility] ([facility]) [address] [place], [address], 01/31/2025 14:08:33 01/31/20 25 01/31/2025 HEMOG LOBIN A1C hemoglobin A1C 8.7 % 4.8-5. 6 above high normal Predi abete s: 5.7 - 6.4 Diabe marco: >6.4 Glyce teresa contr ol for adult s with diabe marco: <7.0 Not Available [facility] ([facility]) [address] [place], [address], 01/31/2025 14:08:34 01/31/20 25 01/31/2025 VITAM IN D, 25-HY DROXY vitamin D, [...] 1. IOM (Inst itute of Medic ine). 2010. Dieta ry refer ence intak es for calci um and D. Cyndi pizarro [place]: The [facility] . 2. Johnie howard MF, Michelle jones [place], Hasmukh off-F miya i BOYER, et al. Evalu ation , treat ment, and preve ntion of vitam in D defic iency : an Endoc rine Socie ty clini ulices pract ice guide line. JCEM. 2010; 96(7) :1911 -30. Not Available [facility] ([facility]) [address] [facility], [place], [address], 01/31/2025 14:08:34 02/28/20 25 02/27/2025 rapid flu (A+B) Flu negati ve Not Available [address], [address], 02/27/2025 08:27:48 02/28/2002/27/2025 rapid flu (A+B) Type Both A & B Not Available [address], [address], 02/27/2025 08:27:48 02/28/2002/27/2025 rapid strep group A, throa t Strep positi ve Not Available [address], [address], 02/27/2025 08:25:15 02/28/20 25 02/27/2025 rapid strep group A, throa t Culture No Not Available [address], [place], [address], 02/27/2025 08:25:15 Result Notes None recorded. Problems Name Problem SNOMED Code Status Onset Date Resolution Date Notes Provider Name and Address Organization Details Recorded Time Type 2 diabetes mellitus 83613535 Completed 201605/06/2017 Ignacio Patito [place] - [facility] 7 11:04:25 Type 1 diabetes mellitus 23469819 Active 2016 Not Available [facility] 3 18:04:38 Diabetic ketoacidos is 207757415 Active 2017 Not Available [facility] 3 18:04:38 Vitamin D deficiency 46303183 Active 2017 Not Available [facility] 3 18:04:38 Problem Notes None recorded. Procedures Surgical History Date Name Laterality Status Provider Name and Address Organization Details Recorded Time 0 Systolic B/P less than 130 mm Hg completed [employer] [place] - [facility] 08/18/2019 13:16:53 0 Diastolic B/P 80-89 mm Hg completed Crystal [place] - [facility] 08/18/2019 13:16:55 0 Systolic B/P less than 130 mm Hg completed [employer] [place] - [facility] 08/07/2019 09:48:31 0 Diastolic B/P less than 80 mm Hg completed [employer] [place] [facility] - [facility] 08/07/2019 09:48:33 Knee Surgery completed Ana Cabrera [place] - [facility] 02/12/2017 11:50:55 Imaging Results None recorded. Procedure [...] sliding scale dose by subcutan eous route. 08/253 completed Not Available Not Available Not Available Lantus U-100 Insulin 100 unit/mL subcutane ous cartridge Inject 25 units every day by sub-q route as directed . 05/06 completed Lantus 100 unit/mL subcutan eous cartridg e;Record ed Status: Recorded on: 02/20/20 09 2:47PM;U ser: estepl;I ndicatio n: Type 1 Diabetes Mellitus - ( 10) Not Available Not Available Not Available FreeStyle [...] Available Not Available Not Available Dexcom G6 Telecommunications Technician apply 1 sensor every 10 days 07/28 [...] height Body mass index (BMI) Body weight Body temperature Heart rate Oxygen saturation Respiratory rate Pain severity - 0-10 verbal numeric rating [Score] - Reported Systolic And Diastolic Provider Name and Address Organization Details Last Updated DateTime 5 162.56 cm 30.6 kg/m2 70172.2 4 g 98.4 [degF] 88 /min 98 % 18 /min 0 108/74 mm[Hg] Laly Urias [place] - [facility] 5 08:32:39 Social History Question Answer Notes LastModified by Organizat ion Details LastModified Time Tobacco Smoking Status Former Smoker Ana [place], [place] - [facility] 02/12/2017 11:49:43 Able To Swim? Yes Information not available 02/12/2017 Do You Have An Advance Directive? No zeusler Information not available 12/10/2022 Do You Wear [...] Or The Highest Degree You Have Received? [id number] Information not available 07/19/2023 Swimming/diving Yes Informati [...] Do You Have A Medical Power Of Property Master? No Information not available 12/10/2022 What Was [...] What is your occupation? [employer] Information not available 12/24/2017 Mental Status Question Answer Note LastModified by Organizat ion Details LastModified Time Do you feel stressed (tense, restless, nervous, or anxious, or unable to sleep at night)? [id number] Information not available 10/29/2023 Do you have [...] unspecified formulation 06/02/19 14 completed Not Available [facility] 04/20/2023 14:26:44 Influenza, split virus, quadrivalent, preservative 03/25/20 23 cancelled patient objection Ya Capps APRN [address], [place], [address], [place] [facility] 03/25/2023 14:31:43 Tdap 02/08/20 24 cancelled patient objection Ya Capps APRN [address], [place], [address], [place] [facility] 02/10/2024 15:14:23 influenza, unspecified formulation 02/20/20 14 completed Not Available [facility] 04/14/2023 18:04:39 influenza, unspecified formulation 03/01/20 12 completed Not Available [facility] 04/14/2023 18:04:39 Influenza, split virus, trivalent, PF 04/09/20 11 completed Not Available [facility] 04/14/2023 18:04:39 Hep B, adolescent or pediatric 01/10/19 97 completed Not Available [facility] 04/14/2023 18:04:39 Past Encounters Encounter ID Performer Location Encounter Start Date Encounter Closed Date Diagnosis/Indication Diagnosis SNOMED-CT Code Diagnosis ICD10 Code Diagnosis IMO Codes Diagnosis Note [id number] Ya Capps [address] [address] 01/30/2025 08:57:36 01/30/2025 09:39:22 Type 1 diabetes mellitus 86170658 Z79.4 *Diabetic Measures:M etformin:n o type 1ACE/ARB:s tartedASA: startedSta tin:starte dGLP:no type 1 Vitamin D deficiency 347 76469 E55.9 [id number] Ya Capps [address] [address] 02/27/2025 08:21:29 02/27/2025 08:59:11 Streptococcal sore throat 78062505 J02.0 01481 will cover for antibiotic scontact precaution sis symptoms worsen or no improvemen t return Health Concerns Section Related Observation LastModified by Organization Detai ls LastModified Time None Recorded Concern Status LastModified by Organization Details LastModified Time None Recorded Payers Encounter Date Sequence Insurance Name Policy Number Policy Walker Covered Member ID Walker Member ID Guarantor Name 02/27/2025 1 [employer] [id number] A Sugar Dawson [id number] Sugar Dawson Notes Date Note Type Note Provider Name and Address Organization Details Recorded Time 02/27/2025 text/html ROS as noted in the HPI 34 yr old male presents for sore throat and headache for 2 days. Ya Capps, TYRE FITTER [address], [place], [address], [facility] - [facility] 02/27/2025 09:36:48
--- OUTSIDE RECORDS SUMMARY | 2025-04-27 06:28 | XMS_ITS | Encounter Summary ---
Author Organization [facility] Address [address] [place] [address] Care Team Providers Care Architectural Drafter Name Role Phone Anil Harmon MD Primary Care Provider + Encounter Details Date Type Department Care Team (Late st Contact Info) Description 01/22/2013 Abstract [facility] Division of Diabetes and Endocrinology [address] [place] [phone] Wiley Desai MD Endocrinology [address] [place] [address] [place] [address] Type 1 diabetes mellitus, uncontrolled (Primary Dx) Social History Tobacco Use Types Packs/Day Years [...] on file documented as of this encounter Progress Notes * Wiley Desai MD - 01/22/2013 9:37 AM EDT Bradly Dawson is a 23 year old male with type 1 diabetes diagnosed on January 22, 1994. Bradly does not have primary hypothyroidism, elevated LDL- cholesterol, microalbuminuria, elevated blood pressure, or celiac disease. Bradly had an elevated triglycerides (301 mg/dl, March 2011; 235 mg/dl July 2012) and a low HDL-cholesterol (38 mg/dl, March 2011; 41 mg/dl, July 2012). The increased TG and low HDL-C were associated with sub-optimal blood sugar control (Hgb a1c = 9.8%, March 2011;Hgb a1c = 9%, July 2012). Visit: December 15, 2013. Hgb a1c = 9.7%. Issues included lack of health insurance. Visit: February 19, 2014. Hgb a1c = ...% ACANTHOSIS NIGRICANS - none noted to date FAMILY HISTORY OF INSULIN RESISTANCE OR LIPID ABNORMALITIES? documented in this encounter Plan of Treatment Not on file documented as of this encounter Visit Diagnoses Diagnosis Type 1 diabetes mellitus, uncontrolled- Primary Type I (juvenile type) diabetes mellitus without mention of complication, uncontrolled documented in this encounter Care Teams Architectural Drafter Relationship Specialty Start Date End Date Anil Harmon MD [address] [place] [address] PCP - General 12/24/09 documented as of this encounter
--- OUTSIDE RECORDS SUMMARY | 2025-04-27 06:28 | XMS_ITS | Data Portability ---
Author Organization [facility] Address [address] [place] [address] Assessment No assessment recorded. Plan of Treatment Reminders Order Date Submit Date Provider Last Modified By Organization Details Last Modified Time Details Appointments Diabetic F/U 2024 09:00A Abhinav Capps, SHUAN Not available Not available Not available Lab rapid strep group A, throat 2024 025 [facility], [address] [place] [address], [id number], 02/27/2025 09:36:21 rapid flu (A+B) 2024 025 [facility], [address] [place] [address], [id number], 02/27/2025 09:36:21 vitamin D, 25-hydrox y, total, serum 2024 025 [facility] Acosta, [address], [place], [address], 01/31/2025 14:08:34 HbA1c (hemoglob in A1c), blood 2024 025 AMNA Acosta, [address], [place], [address], 01/31/2025 14:08:34 CBC w/ auto diff 2024 025 AMNA Acosta, [address], [place], [address], 01/31/2025 14:08:32 TSH + free T4, serum 2024 025 AMNA Connkai, [address], [address], [place], [address], 01/31/2025 14:08:31 lipid panel, serum 2024 025 AM[facility] Davidsonroscoe, [address], Rosal[address] F, [place], [address], 01/31/2025 14:08:33 albumin/c reatinine , mass ratio, urine 2024 025 [facility] Davidsonroscoe, [address], [address] F, [place], [address], 01/31/2025 14:08:33 vitamin D, 25-hydrox y, total, serum 2024 025 [facility] Davidsonroscoe, [address], [address], [place], [address], 09/30/2024 08:23:38 HbA1c (hemoglob in A1c), blood 2024 025 [facility] Davidsonroscoe, [address], [address], [place], [address], 09/30/2024 08:23:38 CMP, serum or plasma 2024 025 [facility] Davidsonroscoe, [address], [address]alio F, [place], [address], 09/30/2024 08:23:37 CBC w/ auto diff 2024 025 AM[facility] Davidsonroscoe, [address], [address]al[address] F, [place], [address], 09/30/2024 08:23:37 TSH + free T4, serum 2024 025 AMNAZOHAIB Davidsonroscoe, [address], [address]al[address], [place], [address], 09/30/2024 08:23:36 lipid panel, serum 2024 025 [facility], [address], [address], [place], [address], 09/30/2024 08:23:38 rapid strep group A, throat 2024 025 [facility], [address] [place] [address], [id number], 08/08/2024 17:19:14 Referral None recorded. Procedures venipunct ure routine (PROC) 2024 graceuckler Not available 10/10/2024 18:54:02 Surgeries None recorded. Imaging None recorded. Medication Orders Zithromax Z-Kolby 250 mg tablet 2024 [facility], [address] [place], [address], 02/27/2025 09:36:27 Humalog U-100 Insulin 100 unit/mL subcutane ous solution 2024 025 [facility], [address] [place], [address], 09/05/2024 17:16:29 amoxicill in 500 mg tablet 2024 025 [facility] [address], [address] [place], [address], 09/05/2024 16:59:21 Patient TargetsNo targets recorded. Patient Instructions Encounter Date Encounter Id Patient Instructions Last Modified By Organization Details Last Modified Time 08/08/2024 [id number] sore throat in children: care instructions efryman Not available 08/08/2024 17:19:14 02/27/2025 [id number] sore throat in children: care instructions efryman Not available 02/27/2025 09:36:21 Reason for Referral None Reported. Results Created Date Observation Date Name Description Value Unit Range Abnormal Flag Note LastModifiedBy Organization Detail LastModifiedTime 08/09/19 25 08/08/2024 rapid strep group A, throa t Strep positi ve Not Available [address], [address], 08/08/2024 16:57:48 08/09/19 25 08/08/2024 rapid strep group A, throa t Culture No Not Available [address], [address], 08/08/2024 16:57:48 09/30/19 25 09/30/2024 TSH+F REE T4 TSH 3.440 uIU/m L 0.450- 4.500 normal Not Available [facility] [address] [place], [address], 09/30/2024 08:23:36 09/30/1909/30/2024 TSH+F REE T4 T4,free(dire ct) 1.15 NG/dL 0.82-1 .77 normal Not Available [facility] [address] [place], [address], 09/30/2024 08:23:36 09/30/1909/30/2024 CBC WITH DIFFE RENTI AL/PL ATELE T WBC 3.4 x10e3 /uL 3.4-10 .8 normal Not Available [facility] [address] [place], [address], 09/30/2024 08:23:37 09/30/1909/30/2024 CBC WITH DIFFE RENTI AL/PL ATELE T RBC 5.40 x10e6 /uL 4.14-5 .80 normal Not Available [facility] [address] [place], [address], 09/30/2024 08:23:37 09/30/192025 CBC WITH DIFFE RENTI AL/PL ATELE T hemoglobin 16.8 g/dL 13.0-1 7.7 normal Not Available [facility] [address] [place], [address], 09/30/2024 08:23:37 09/30/19 25 09/30/2024 CBC WITH DIFFE RENTI AL/PL ATELE T hematocrit 49.9 % 37.5-5 1.0 normal Not Available [facility] [address] [place], [address], 09/30/2024 08:23:37 09/30/1909/30/2024 CBC WITH DIFFE RENTI AL/PL ATELE T MCV 92 fL 79-97 normal Not Available [facility] [address] [place], [address], 09/30/2024 08:23:37 09/30/1909/30/2024 CBC WITH DIFFE RENTI AL/PL ATELE T MCH 31.1 pg 26.6-3 3.0 normal Not Available [facility] [address] [place], [address], 09/30/2024 08:23:37 09/30/1909/30/2024 CBC WITH DIFFE RENTI AL/PL ATELE T MCHC 33.7 g/dL 31.5-3 5.7 normal Not Available [facility] [address] [place], [address], 09/30/2024 08:23:37 09/30/1909/30/2024 CBC WITH DIFFE RENTI AL/PL ATELE T RDW 12.4 % 11.6-1 5.4 Not Available [facility] [address] [place], [address], 09/30/2024 08:23:37 09/30/19 25 09/30/2024 CBC WITH DIFFE RENTI AL/PL ATELE T platelets 284 x10e3 /uL 150-45 0 normal Not Available [facility]) [address] [facility], [place], [address], 09/30/2024 08:23:37 09/30/19 25 09/30/2024 CBC WITH DIFFE RENTI AL/PL ATELE T neutrophils 50 % not estab. normal Not Available [facility]) [address] [facility], [place], [address], 09/30/2024 08:23:37 09/30/1909/30/2024 CBC WITH DIFFE RENTI AL/PL ATELE T lymphs 38 % not estab. normal Not Available [facility] [address] [facility], [place], [address], 09/30/2024 08:23:37 09/30/19 25 09/30/2024 CBC WITH DIFFE RENTI AL/PL ATELE T monocytes 9 % not estab. normal Not Available [facility] [address] [place], [address], 09/30/2024 08:23:37 09/30/19 25 09/30/2024 CBC WITH DIFFE RENTI AL/PL ATELE T eos 2 % not estab. normal Not Available [facility] [address] [facility], [place], [address], 09/30/2024 08:23:37 09/30/19 25 09/30/2024 CBC WITH DIFFE RENTI AL/PL ATELE T basos 1 % not estab. normal Not Available [facility] [address] [facility], [place], [address], 09/30/2024 08:23:37 09/30/19 25 09/30/2024 CBC WITH DIFFE RENTI AL/PL ATELE T immature cells HEALTH CENTER ASSISTANT Not Available [facility] [address] [place], [address], 09/30/2024 08:23:37 09/30/1909/30/2024 CBC WITH DIFFE RENTI AL/PL ATELE T neutrophils (absolute) 1.7 x10e3 /uL 1.4-7. 0 normal Not Available [facility] [address] [place], [address], 09/30/2024 08:23:37 09/30/19 25 09/30/2024 CBC WITH DIFFE RENTI AL/PL ATELE T lymphs (absolute) 1.3 x10e3 /uL 0.7-3. 1 normal Not Available [facility] [address] [place], [address], 09/30/2024 08:23:37 09/30/19 25 09/30/2024 CBC WITH DIFFE RENTI AL/PL ATELE T monocytes(ab solute) 0.3 x10e3 /uL 0.1-0. 9 normal Not Available [facility] [address] [place], [address], 09/30/2024 08:23:37 09/30/1909/30/2024 CBC WITH DIFFE RENTI AL/PL ATELE T eos (absolute) 0.1 x10e3 /uL 0.0-0. 4 normal Not Available [facility] [address] [place], [address], 09/30/2024 08:23:37 09/30/19 25 09/30/2024 CBC WITH DIFFE RENTI AL/PL ATELE T baso (absolute) 0.0 x10e3 /uL 0.0-0. 2 normal Not Available [facility] [address] [place], [address], 09/30/2024 08:23:37 09/30/19 25 09/30/2024 CBC WITH DIFFE RENTI AL/PL ATELE T immature granulocytes 0 % not estab. Not Available [facility] [address] [facility], [place], [address], 09/30/2024 08:23:37 09/30/19 25 09/30/2024 CBC WITH DIFFE RENTI AL/PL ATELE T immature grans (abs) 0.0 x10e3 /uL 0.0-0. 1 Not Available [facility] [address] [facility], [place], [address], 09/30/2024 08:23:37 09/30/19 25 09/30/2024 CBC WITH DIFFE RENTI AL/PL ATELE T NRBC HEALTH CENTER ASSISTANT Not Available [facility] [address] [facility], [place], [address], 09/30/2024 08:23:37 09/30/19 25 09/30/2024 CBC WITH DIFFE RENTI AL/PL ATELE T hematology comments: HEALTH CENTER ASSISTANT Not Available [facility] [address] [facility], [place], [address], 09/30/2024 08:23:37 09/30/19 25 09/30/2024 COMP. METAB OLIC PANEL (14) glucose 136 mg/dL 70-99 above high normal Not Available [facility] [address] [facility], [place], [address], 09/30/2024 08:23:37 09/30/19 25 09/30/2024 COMP. METAB OLIC PANEL (14) BUN 13 mg/dL 6-20 normal Not Available [facility] [address] [facility], [place], [address], 09/30/2024 08:23:37 09/30/19 25 09/30/2024 COMP. METAB OLIC PANEL (14) creatinine 0.82 mg/dL 0.76-1 .27 normal Not Available [facility]) [address] [place], [address], 09/30/2024 08:23:37 09/30/19 25 09/30/2024 COMP. METAB OLIC PANEL (14) eGFR 120 mL/mi n/1.7 3 >59 normal Not Available [facility] [address] [place], [address], 09/30/2024 08:23:37 09/30/19 25 09/30/2024 COMP. METAB OLIC PANEL (14) BUN/creatini ne ratio 16 9-20 normal Not Available [facility] [address] [place], [address], 09/30/2024 08:23:37 09/30/19 25 09/30/2024 COMP. METAB OLIC PANEL (14) sodium 137 mmol/ L 134-14 4 normal Not Available [facility] [address] [place], [address], 09/30/2024 08:23:37 09/30/19 25 09/30/2024 COMP. METAB OLIC PANEL (14) potassium 4.7 mmol/ L 3.5-5. 2 normal Not Available [facility] ([facility]) [address] [place], [address], 09/30/2024 08:23:37 09/30/19 25 09/30/2024 COMP. METAB OLIC PANEL (14) chloride 104 mmol/ L 96-106 normal Not Available [facility] ([facility]) [address] [facility] [place], [address], 09/30/2024 08:23:37 09/30/19 25 09/30/2024 COMP. METAB OLIC PANEL (14) carbon dioxide, total 21 mmol/ L 20-29 normal Not Available [facility] ([facility]) [address] [facility] [place], [address], 09/30/2024 08:23:37 09/30/19 25 09/30/2024 COMP. METAB OLIC PANEL (14) calcium 9.3 mg/dL 8.7-10 .2 normal Not Available [facility] [address] [place], [address], 09/30/2024 08:23:37 09/30/19 25 09/30/2024 COMP. METAB OLIC PANEL (14) protein, total 6.7 g/dL 6.0-8. 5 normal Not Available [facility] [address] [place], [address], 09/30/2024 08:23:37 09/30/19 25 09/30/2024 COMP. METAB OLIC PANEL (14) albumin 4.3 g/dL 4.1-5. 1 normal Not Available [facility] [address] [place], [address], 09/30/2024 08:23:37 09/30/19 25 09/30/2024 COMP. METAB OLIC PANEL (14) globulin, total 2.4 g/dL 1.5-4. 5 Not Available [facility] [address] [place], [address], 09/30/2024 08:23:37 09/30/19 25 09/30/2024 COMP. METAB OLIC PANEL (14) bilirubin, total 0.6 mg/dL 0.0-1. 2 normal Not Available [facility] [address] [place], [address], 09/30/2024 08:23:37 09/30/19 25 09/30/2024 COMP. METAB OLIC PANEL (14) alkaline phosphatase 81 IU/L 44-121 normal Not Available [facility] [address] [place], [address], 09/30/2024 08:23:37 09/30/19 25 09/30/2024 COMP. METAB OLIC PANEL (14) AST (SGOT) 20 IU/L 0-40 normal Not Available [facility] [address] [facility] [place], [address], 09/30/2024 08:23:37 09/30/19 25 09/30/2024 COMP. METAB OLIC PANEL (14) ALT (SGPT) 24 IU/L 0-44 normal Not Available [facility] [address] [facility] [place], [address], 09/30/2024 08:23:37 09/30/19 25 09/30/2024 LIPID PANEL cholesterol, total 173 mg/dL 100-19 9 normal Not Available [facility] [address] [place], [address], 09/30/2024 08:23:38 09/30/19 25 09/30/2024 LIPID PANEL triglyceride s 73 mg/dL 0-149 normal Not Available [facility] [address] [place], [address], 09/30/2024 08:23:38 09/30/19 25 09/30/2024 LIPID PANEL HDL cholesterol 49 mg/dL >39 normal Not Available [facility] [address] [place], [address], 09/30/2024 08:23:38 09/30/19 25 09/30/2024 LIPID PANEL VLDL cholesterol ulices 14 mg/dL 5-40 Not Available [facility] [address] [place], [address], 09/30/2024 08:23:38 09/30/19 25 09/30/2024 LIPID PANEL LDL chol calc ([facility]) 110 mg/dL 0-99 above high normal Not Available [facility] [address] [facility], [address], 09/30/2024 08:23:38 09/30/1909/30/2024 LIPID PANEL LDL calc comment: HEALTH CENTER ASSISTANT Not Available [facility] [address] [facility], [place], [address], 09/30/2024 08:23:38 09/30/1909/30/2024 HEMOG LOBIN A1C hemoglobin A1C 8.7 % 4.8-5. 6 above high normal Predi abete s: 5.7 - 6.4 Diabe marco: >6.4 Glyce teresa contr ol for adult s with diabe marco: <7.0 Not Available [facility]) [address] [facility], [place], [address], 09/30/2024 08:23:38 09/30/1909/30/2024 VITAM IN D, 25-HY DROXY vitamin D, 25-hydroxy 16.4 NG/mL 30.0-1 00.0 below low normal Vitam [...] Medic ine). 2009. Dieta ry refer ence intak es for calci um and D. Cyndi pizarro [place]: The [facility] Press . 2. Johnie howard MF, Michelle jones [place], Hasmukh off-F errar i BOYER, et al. Evalu ation , treat ment, and preve ntion of vitam in D defic iency : an Endoc rine Socie ty clini ulices pract ice guide line. JCEM. 2010; 96(7) :1911 -30. Not Available [facility] [address] [facility], [place], [address], 09/30/2024 08:23:38 01/31/2001/31/2025 TSH+F REE T4 TSH 4.560 uIU/m L 0.450- 4.500 above high normal Not Available [facility] [address] [facility], [place], [address], 01/31/2025 14:08:31 01/31/2001/31/2025 TSH+F REE T4 T4,free(dire ct) 1.12 NG/dL 0.82-1 .77 normal Not Available [facility] [address] [facility], [place], [address], 01/31/2025 14:08:31 01/31/2001/31/2025 CBC WITH DIFFE RENTI AL/PL ATELE T WBC 3.7 x10e3 /uL 3.4-10 .8 normal Not Available [facility] [address] [facility], [place], [address], 01/31/2025 14:08:32 01/31/2001/31/2025 CBC WITH DIFFE RENTI AL/PL ATELE T RBC 5.21 x10e6 /uL 4.14-5 .80 normal Not Available [facility] [address] [place], [address], 01/31/2025 14:08:32 01/31/2001/31/2025 CBC WITH DIFFE RENTI AL/PL ATELE T hemoglobin 16.1 g/dL 13.0-1 7.7 normal Not Available [facility]) [address] [place], [address], 01/31/2025 14:08:32 01/31/2001/31/2025 CBC WITH DIFFE RENTI AL/PL ATELE T hematocrit 47.9 % 37.5-5 1.0 normal Not Available [facility]) [address] [facility], [place], [address], 01/31/2025 14:08:32 01/31/2001/31/2025 CBC WITH DIFFE RENTI AL/PL ATELE T MCV 92 fL 79-97 normal Not Available [facility] [address] [facility], [place], [address], 01/31/2025 14:08:32 01/31/2001/31/2025 CBC WITH DIFFE RENTI AL/PL ATELE T MCH 30.9 pg 26.6-3 3.0 normal Not Available [facility] [address] [facility], [place], [address], 01/31/2025 14:08:32 01/31/20 25 01/31/2025 CBC WITH DIFFE RENTI AL/PL ATELE T MCHC 33.6 g/dL 31.5-3 5.7 normal Not Available [facility] [address] [facility], [place], [address], 01/31/2025 14:08:32 01/31/2001/31/2025 CBC WITH DIFFE RENTI AL/PL ATELE T RDW 12.5 % 11.6-1 5.4 Not Available [facility] [address] [facility], [place], [address], 01/31/2025 14:08:32 01/31/2001/31/2025 CBC WITH DIFFE RENTI AL/PL ATELE T platelets 266 x10e3 /uL 150-45 0 normal Not Available [facility]) [address] [facility], [place], [address], 01/31/2025 14:08:32 01/31/20 25 01/31/2025 CBC WITH DIFFE RENTI AL/PL ATELE T neutrophils 52 % not estab. normal Not Available [facility]) [address] [facility], [place], [address], 01/31/2025 14:08:32 01/31/20 25 01/31/2025 CBC WITH DIFFE RENTI AL/PL ATELE T lymphs 36 % not estab. normal Not Available [facility]) [address] [facility], [place], [address], 01/31/2025 14:08:32 01/31/20 25 01/31/2025 CBC WITH DIFFE RENTI AL/PL ATELE T monocytes 9 % not estab. normal Not Available [facility] [address] [facility], [place], [address], 01/31/2025 14:08:32 01/31/20 25 01/31/2025 CBC WITH DIFFE RENTI AL/PL ATELE T eos 2 % not estab. normal Not Available [facility] [address] [facility], [place], [address], 01/31/2025 14:08:32 01/31/20 25 01/31/2025 CBC WITH DIFFE RENTI AL/PL ATELE T basos 1 % not estab. normal Not Available [facility] [address] [facility], [place], [address], 01/31/2025 14:08:32 01/31/20 25 01/31/2025 CBC WITH DIFFE RENTI AL/PL ATELE T immature cells HEALTH CENTER ASSISTANT Not Available [facility] [address] [facility], [place], [address], 01/31/2025 14:08:32 01/31/20 25 01/31/2025 CBC WITH DIFFE RENTI AL/PL ATELE T neutrophils (absolute) 1.9 x10e3 /uL 1.4-7. 0 normal Not Available [facility] [address] [facility], [place], [address], 01/31/2025 14:08:32 01/31/20 25 01/31/2025 CBC WITH DIFFE RENTI AL/PL ATELE T lymphs (absolute) 1.4 x10e3 /uL 0.7-3. 1 normal Not Available [facility] [address] [facility], [place], [address], 01/31/2025 14:08:32 01/31/20 25 01/31/2025 CBC WITH DIFFE RENTI AL/PL ATELE T monocytes(ab solute) 0.3 x10e3 /uL 0.1-0. 9 normal Not Available [facility] [address] [facility], [place], [address], 01/31/2025 14:08:32 01/31/20 25 01/31/2025 CBC WITH DIFFE RENTI AL/PL ATELE T eos (absolute) 0.1 x10e3 /uL 0.0-0. 4 normal Not Available [facility] [address] [facility], [place], [address], 01/31/2025 14:08:32 01/31/20 25 01/31/2025 CBC WITH DIFFE RENTI AL/PL ATELE T baso (absolute) 0.0 x10e3 /uL 0.0-0. 2 normal Not Available [facility] [address] [facility], [place], [address], 01/31/2025 14:08:32 01/31/2001/31/2025 CBC WITH DIFFE RENTI AL/PL ATELE T immature granulocytes 0 % not estab. Not Available [facility] [address] [facility], [place], [address], 01/31/2025 14:08:32 01/31/20 25 01/31/2025 CBC WITH DIFFE RENTI AL/PL ATELE T immature grans (abs) 0.0 x10e3 /uL 0.0-0. 1 Not Available [facility] [address] [facility], [place], [address], 01/31/2025 14:08:32 01/31/20 25 01/31/2025 CBC WITH DIFFE RENTI AL/PL ATELE T NRBC HEALTH CENTER ASSISTANT Not Available [facility] [address] [facility], [place], [address], 01/31/2025 14:08:32 01/31/20 25 01/31/2025 CBC WITH DIFFE RENTI AL/PL ATELE T hematology comments: HEALTH CENTER ASSISTANT Not Available [facility] [address] [facility], [place], [address], 01/31/2025 14:08:32 01/31/20 25 01/31/2025 LIPID PANEL cholesterol, total 160 mg/dL 100-19 9 normal Not Available [facility]) [address] [facility], [place], [address], 01/31/2025 14:08:33 01/31/20 25 01/31/2025 LIPID PANEL triglyceride s 61 mg/dL 0-149 normal Not Available [facility] [address] [facility], [place], [address], 01/31/2025 14:08:33 01/31/20 25 01/31/2025 LIPID PANEL HDL cholesterol 46 mg/dL >39 normal Not Available [facility] [address] [facility], [place], [address], 01/31/2025 14:08:33 01/31/20 25 01/31/2025 LIPID PANEL VLDL cholesterol ulices 12 mg/dL 5-40 Not Available [facility] [address] [place], [address], 01/31/2025 14:08:33 01/31/20 25 01/31/2025 LIPID PANEL LDL chol calc ([facility]) 102 mg/dL 0-99 above high normal Not Available [facility] [address] [facility], [place], [address], 01/31/2025 14:08:33 01/31/2001/31/2025 LIPID PANEL LDL calc comment: HEALTH CENTER ASSISTANT Not Available [facility] [address] [place], [address], 01/31/2025 14:08:33 01/31/20 25 01/31/2025 ALBUM IN/CR EATIN INE RATIO ,URIN E creatinine, urine 226.5 mg/dL not estab. normal Not Available [facility] [address] [facility], [place], [address], 01/31/2025 14:08:33 01/31/20 25 01/31/2025 ALBUM IN/CR EATIN INE RATIO ,URIN E albumin, urine 8.1 ug/mL not estab. Not Available [facility] [address] [facility], [place], [address], 01/31/2025 14:08:33 01/31/2001/31/2025 ALBUM IN/CR EATIN INE RATIO ,URIN E alb/creat ratio 4 mg/g_ creat 0-29 Shalini l: 0 - 29 Moder ately incre ased: 30 - 300 Sever denny incre ased: >300 Not Available [facility]) [address] [facility], [place], [address], 01/31/2025 14:08:33 01/31/20 25 01/31/2025 HEMOG LOBIN A1C hemoglobin A1C 8.7 % 4.8-5. 6 above high normal Predi abete s: 5.7 - 6.4 Diabe marco: >6.4 Glyce teresa contr ol for adult s with diabe marco: <7.0 Not Available [facility]) [address] [place], [address], 01/31/2025 14:08:34 01/31/20 25 01/31/2025 VITAM IN [...] IOM (Inst itute of Medic ine). 2010. Óscar ry refer robere anushka es for calci um and D. Cyndi pizarro [place]: [facility] Press . 2. Johnie howard MF, Michelle jones [place], Hasmukh off-F errar i BOYER, et al. Evalu ation , treat ment, and preve ntion of vitam in D defic iency : an Endoc rine Socie ty clini ulices pract ice guide line. JCEM. 2010; 96(7) :1911 -30. Not Available [facility]) [address] [facility], [place], [address], 01/31/2025 14:08:34 02/28/20 25 02/27/2025 rapid flu (A+B) Flu negati ve Not Available [address], [address], 02/27/2025 08:27:48 02/28/20 25 02/27/2025 rapid flu (A+B) Type Both A & B Not Available [address], [address], 02/27/2025 08:27:48 02/28/20 25 02/27/2025 rapid strep group A, throa t Strep positi ve Not Available [address] [place], [address], 02/27/2025 08:25:15 02/28/20 25 02/27/2025 rapid strep group A, throa t Culture No Not Available [address], [address], 02/27/2025 08:25:15 Result Notes None recorded. Problems Name Problem SNOMED Code Status Onset Date Resolution Date Notes Provider Name and Address Organization Details Recorded Time Type 2 diabetes mellitus 38664514 Completed 201605/06/2017 Ignacio littlejohn [place] [facility] 7 11:04:25 Type 1 diabetes mellitus 18271026 Active 2016 Not Available [facility] 3 18:04:38 Diabetic ketoacidos is [id number] Active 2017 Not Available [facility] 3 18:04:38 Vitamin D deficiency 10609077 Active 2017 Not Available [facility] 3 18:04:38 Problem Notes None recorded. Procedures Surgical History Date Name Laterality Status Provider Name and Address Organization Details Recorded Time 0 Systolic B/P less than 130 mm Hg completed Crystal Dudley [place] - [facility] 08/18/2019 13:16:53 0 Diastolic B/P 80-89 mm Hg completed Crystal Dud[place] - [facility] 08/18/2019 13:16:55 0 Systolic B/P less than 130 mm Hg completed Crystal Dudley [place] - [facility] 08/07/2019 09:48:31 0 Diastolic B/P less than 80 mm Hg completed Crystal [place] - [facility] 08/07/2019 09:48:33 Knee Surgery completed Ana Cabrera [place] - [facility] 02/12/2017 11:50:55 Imaging Results None [...] Available Not Available Not Available Dexcom G6 Aviation Neuropsychologist apply 1 sensor every 10 days 07/28 completed Not Available Not Available Not Available Dexcom G6 Transmitt er device APPLY EVERY 90 DAYS 09/05 completed Not Available Not Available Not Available BD Kristie 2nd Gen Pen Needle 32 gauge x /32 USE 1 PEN NEEDLE UP TO 4 [...] Details Last Updated DateTime 5 162.56 cm 29.2 kg/m2 62345.7 g 97.7 [degF] 85 /min 98 % 18 /min 0 118/72 mm[Hg] Laly DE LA T[place] - [facility] 5 16:58:58 Date Recorded Body height Body mass index (BMI) Body weight Respiratory rate Pain severity - 0-10 verbal numeric rating [Score] - Reported Heart rate Oxygen saturation Systolic And Diastolic Provider Name and Address Organization Details Last Updated DateTime 5 162.56 cm 29.8 kg/m2 44145.5 8 g 18 /min 0 78 /min 98 % 122/78 mm[Hg] Laly DE LA T[place]RE - [facility] 5 16:48:25 Date Recorded Body height Provider Name an d Address Organization Details Last Updated DateTime 09/29/2024 162.56 cm Laly Urias [facility] 0 09/29/2024 08:00:08 Date Recorded Body height Body mass index (BMI) Body weight Heart rate Oxygen saturation Body temperature Respiratory rate Pain severity - 0-10 verbal numeric rating [Score] - Reported Systolic And Diastolic Provider Name and Address Organization Details Last Updated DateTime 162.56 cm 30.3 kg/m2 80318.0 6 g 86 /min 98 % 98.9 [degF] 18 /min 0 112/70 mm[Hg] Laly Urias [facility] 09:12:23 Date Recorded Body height Body mass index (BMI) Body weight Body temperature Heart rate Oxygen saturation Respiratory rate Pain severity - 0-10 verbal numeric rating [Score] - Reported Systolic And Diastolic Provider Name and Address Organization Details Last Updated DateTime 162.56 cm 30.6 kg/m2 71392.2 4 g 98.4 [degF] 88 /min 98 % 18 /min 0 108/74 mm[Hg] Laly Bridgett [facility] 08:32:39 Social History Question Answer Notes LastModified by Organizat ion Details LastModified Time Tobacco Smoking Status Former [facility] 02/12/2017 11:49:43 Able To Swim? Yes Information [...] Or The Highest Degree You Have Received? [id number] Information not available 07/19/2023 Swimming/diving Yes Informati [...] Do You Have A Medical Power Of Lead Programmer? No Information not available 12/10/2022 What Was [...] is your occupation? [employer] Information not available 12/24/2017 Mental Status Question Answer Note LastModified by Organizat ion Details LastModified Time Do you feel stressed (tense, restless, nervous, or anxious, or unable to sleep at night)? [id number] Information not available 10/29/2023 Do you have [...] unspecified formulation 06/02/19 14 completed Not Available [facility] 04/20/2023 14:26:44 Influenza, split virus, quadrivalent, preservative 03/25/20 23 cancelled patient objection Ya Capps APRN [address], [place], [address], [place] [facility] 03/25/2023 14:31:43 Tdap 02/08/20 24 cancelled patient objection Ya Capps APRN [address], [place], [address], [place] [facility] 02/10/2024 15:14:23 influenza, unspecified formulation 02/20/20 14 completed Not Available [facility] 04/14/2023 18:04:39 influenza, unspecified formulation 03/01/20 12 completed Not Available [facility] 04/14/2023 18:04:39 Influenza, split virus, trivalent, PF 04/09/20 11 completed Not Available [facility] 04/14/2023 18:04:39 Hep B, adolescent or pediatric 01/10/19 97 completed Not Available [facility] 04/14/2023 18:04:39 Past Encounters Encounter ID Performer Location Encounter Start Date Encounter Closed Date Diagnosis/Indication Diagnosis SNOMED-CT Code Diagnosis ICD10 Code Diagnosis IMO Codes Diagnosis Note [id number] [facility] [address] [place] [address] 01/11/2009 00:00:00 [id number] [facility] [address] [place] [address] 02/19/2009 00:00:00 [id number] [facility] [address] [place] [address] 02/19/2009 00:00:00 [id number] [facility] [address] [place] [address] 04/07/2011 00:00:00 [id number] [facility] [address] [place] [address] 04/15/2015 00:00:00 [id number] [facility] [address] [place] [address] 06/20/2015 00:00:00 [id number] Peggy Schwartz MD [address] [place] [address] 02/12/2017 11:28:21 02/12/2017 12:07:57 Acute upper respiratory infection 86755724 J06.9 Body mass index 20-24 - normal 075766892 Z68.21 [id number] Chula Newberry SOCIAL WORK THERAPIST [facility] [address] [place] [address] 05/06/2017 10:54:09 05/06/2017 11:33:32 Streptococcal sore throat 32600898 J02.0 Acute bact erial sinusitis 87902456 J01.90 [id number] Meg Daniel SOCIAL WORK THERAPIST [facility] [address] [place] [address] 07/26/2017 12:52:46 07/26/2017 14:08:17 Type 1 diabetes mellitus 59581288 E10.9 Embolism 112460534 I74.9 [id number] Chula Newberry SOCIAL WORK THERAPIST [address] [place] [address] 12/24/2017 09:15:58 12/24/2017 11:00:20 Vitamin D deficiency 09599789 E55.9 Viral gastroenteritis 11 2263134 A08.4 [id number] Meg Daniel [address] [place] [address] 08/07/2019 09:36:41 08/07/2019 10:15:48 Cough 56001266 R05 Acute bronchitis 8867168 2 J20.9 Acute sinusitis 74017607 J01.90 [id number] Meg Daniel [address] [place] [address] 08/18/2019 12:54:39 08/18/2019 13:42:14 Upper respiratory infection 78044134 J06.9 [id number] [facility] [address] [address] 02/19/2022 14:12:01 02/19/2022 15:13:44 Pharyngitis 489347180 J02.9 Fever 733142041 R50.9 Acute maxi llary sinusitis 96028637 J01.00 monitor glucose close while on steroids may need to adjust insulin sliding scale to cover elevated glucose [id number] Ya Capps [address] [address] 07/28/2022 14:20:22 07/28/2022 15:09:19 Type 1 diabetes mellitus 36037596 Z79.4 Acute maxi llary sinusitis 04239380 J01.00 [id number] [facility] [address] [address] 08/10/2022 08:38:38 08/10/2022 09:41:35 [id number] Ya Capps [address] [address] 08/17/2022 09:20:15 08/17/2022 10:06:13 Type 1 diabetes mellitus 24302996 Z79.4 fmla paperwork filled outcontiun e treatment [id number] Ya Capps[address] [address] 08/27/2022 08:59:04 08/27/2022 11:12:27 Type 1 diabetes mellitus 31696725 Z79.4 paperwork filled outcontinu e treatmentr eturn in 2 weeksomni pod training preformed by David Johnson with [employer]- orders signed [id number] [place] [address] 11/26/2022 15:35:21 11/26/2022 16:11:58 Pharyngitis 397784081 J02.9 Acute maxi llary sinusitis 37393855 J01.00 [id number] [facility] [address] [address] 12/10/2022 09:20:29 12/10/2022 10:06:40 Type 1 diabetes mellitus 61375740 Z79.4 *Diabetic Measures:M etformin:n o type 1ACE/ARB:s tartedASA: startedSta tin:starte dGLP:no type 1discussed meds and possible side effects and benefits of med with dm diagnosis Body mass index 25-29 - overweight 328106385 Z68.25 Overweight 600352830 E66 .3 Vitamin D deficiency 347 63073 E55.9 [id number] Ya Capps[address] [address] 02/26/2023 09:48:39 02/26/2023 10:40:44 Type 1 diabetes mellitus 28758590 Z79.4 *Diabetic Measures:M etformin:n o type 1ACE/ARB:s tartedASA: startedSta tin:starte dGLP:no type 1flma paperwork filled out Acute maxi llary sinusitis 85770521 J01.00 [id number] [place] [address] 03/25/2023 13:51:01 03/25/2023 14:40:59 Type 1 diabetes mellitus 92824298 Z79.4 *Diabetic Measures:M etformin:n o type 1ACE/ARB:s tartedASA: startedSta tin:starte dGLP:no type 1 Vitamin D deficiency 347 65580 E55.9 Influenza vaccine needed 6045994154 106 Z23 [id number] [place] [address] 04/20/2023 14:24:06 04/20/2023 15:11:45 Type 1 diabetes mellitus 69982885 Z79.4 *Diabetic Measures:M etformin:n o type 1ACE/ARB:s tartedASA: startedSta tin:starte dGLP:no type 1 Acute maxi llary sinusitis 33605263 J01.00 [id number] [place] [address] 07/19/2023 14:18:48 07/19/2023 15:31:38 Type 1 diabetes mellitus 48404245 Z79.4 *Diabetic Measures:M etformin:n o type 1ACE/ARB:s tartedASA: startedSta tin:starte dGLP:no type 1 [id number] [place] [address] 08/16/2023 14:00:05 08/16/2023 15:23:24 Type 1 diabetes mellitus 36856434 Z79.4 *Diabetic Measures:M etformin:n o type 1ACE/ARB:s tartedASA: startedSta tin:starte dGLP:no type 1 flma paperwork completed [id number] Ya Capps[address] [place] [address] 10/29/2023 13:47:07 10/29/2023 14:27:37 Type 1 diabetes mellitus 23465558 Z79.4 *Diabetic Measures:M etformin:n o type 1ACE/ARB:s tartedASA: startedSta tin:starte dGLP:no type 1 Vitamin D deficiency 347 75651 E55.9 Abnormalit y of nail of toe 349381949 L60.8 [id number] Radha Aponte [facility] [address] [place] [address] 11/02/2023 09:44:20 11/02/2023 11:11:10 Injury of nail 659961416 S69.90XA clinically favors discolorat ion secondary to trauma. we discussed monitoring . follow up in 9 month for re-eval [id number] Ya Capps [address] [address] 11/11/2023 14:16:56 11/11/2023 14:52:48 Pharyngitis 335961866 J02.9 Acute maxi llary sinusitis 24419155 J01.00 [id number] Ya Capps [address] [address] 02/08/2024 18:07:10 02/08/2024 18:48:13 Type 1 diabetes mellitus 43590039 Z79.4 *Diabetic Measures:M etformin:n o type 1ACE/ARB:s tartedASA: startedSta tin:starte dGLP:no type 1 Body mass index 25-29 - overweight 949107748 Z68.27 27.3 Overweight 498738009 E66 .3 HIV screen ing declined 6113685131 13823 Z53.20 Hepatitis C screening declined 5879064394 5105 Z53.20 Vaccination declined 778 7158287 Z28.21 Insulin pump present 450 589776 Z96.41 [id number] Ya Capps [address] [address] 05/09/2024 17:40:14 05/09/2024 18:25:04 Type 1 diabetes mellitus 68027146 Z79.4 *Diabetic Measures:M etformin:n o type 1ACE/ARB:s tartedASA: startedSta tin:starte dGLP:no type 1pt wants to wait till next visit for labs [id number] Ya Capps [address] [address] 06/23/2024 09:38:54 06/23/2024 10:26:01 Body mass index 25-29 - overweight 114279637 Z68.29 29.1 Overweight 428635369 E66 .3 Streptococ ulices sore throat 20297995 J02.0 will cover for antibiotic s due to fever since act precaution sis symptoms worsen or no improvemen t return Acute righ t otitis media 039092031 H66.91 cover with antibiotic s [id number] Ya Capps [address] [address] 08/08/2024 16:30:08 08/08/2024 17:28:43 Streptococcal sore throat 01905293 J02.0 will cover for antibiotic scontact precaution sis symptoms worsen or no improvemen t return Acute righ t otitis media 842278721 H66.91 cover with antibiotic s Disability 57523989 Z78. 9 [facility] paperwork filled out [id number] Ya Capps [address] [address] 09/05/2024 16:35:27 09/05/2024 17:17:49 Type 1 diabetes mellitus 53796174 Z79.4 *Diabetic Measures:M etformin:n o type 1ACE/ARB:s tartedASA: startedSta tin:starte dGLP:no type 1 Vitamin D deficiency 347 00221 E55.9 Insulin pump present 450 745488 Z96.41 210408 continue present settings [id number] Ya Capps [address] [address] 09/29/2024 07:55:19 09/29/2024 08:24:29 Long-term current use of insulin 343535734 Z79.4 9746361 [id number] Ya Capps SOCIAL WORK THERAPIST [address] [address] 01/30/2025 08:57:36 01/30/2025 09:39:22 Type 1 diabetes mellitus 28138731 Z79.4 *Diabetic Measures:M etformin:n o type 1ACE/ARB:s tartedASA: startedSta tin:starte dGLP:no type 1 Vitamin D deficiency 347 47821 E55.9 [id number] Ya Capps APRN [address] [address] 02/27/2025 08:21:29 02/27/2025 08:59:11 Streptococcal sore throat 31670445 J02.0 48963 will cover for antibiotic scontact precaution sis symptoms worsen or no improvemen t return Health Concerns Section Related Observation LastModified by Organization Detai ls LastModified Time None Recorded Concern Status LastModified by Organization Details LastModified Time None Recorded Advance Directives Directive N: Payers Insurance Date Sequence Insurance Name Policy Number Policy Walker Covered Member ID Walker Member ID Guarantor Name 02/27/2025 1 [employer] BY [employer] [facility] (MEDICAID REPLACEMENT - HMO) MEDICAID Bradly Dawson [id number] Sugar Dawson 02/27/2025 1 [place] [id number] Bradly Dawson [id number] Sugar Dawson 03/28/2025 1 [place] [id number] Sugar Dawson [id number] Sugar Dawson 02/27/2025 1 PASSPORT BY [facility] (MEDICAID REPLACEMENT - HMO) MEDICAID Bradly Dawson [id number] Sugar Dawson 02/27/2025 [place] [facility] WRAP BILLING (MEDICAID) Bradly Dawson [id number] Sugar Dawson Notes Date Note Type Note Provider Name and Address Organization Details Recorded Time 08/08/2024 text/html ROS as noted in the HPI 34 yr old male presents to update [facility] paperwork. He also has pain in the right ear and a sore throat after shed hunting on Wednesday. Ya Capps APRN [address], [place], [address], [place] [facility] 08/08/2024 17:20:47 09/05/2024 text/html 34 yr old male presents to follow up on diabetes. pt states he is doing well on pump and dexcom g7 Ya Capps APRN [address], [place], [address], [place] [facility] 09/05/2024 17:17:27 09/29/2024 text/html 34 yr old male presents for labs. Laly [place], [place] - [facility] 09/29/2024 08:49:22 01/30/2025 text/html 34 yr old male presents for a diabetes follow up. He has not been taking his lisinopril or aspirin due forgets to take med Ya Capps APRN [address], [place], [address], [place] [facility] 01/30/2025 09:31:54 02/27/2025 text/html ROS as noted in the HPI 34 yr old male presents for sore throat and headache for 2 days. Ya Capps APRN [address], [place], [address], [place] [facility] 02/27/2025 09:36:48
--- OUTSIDE RECORDS SUMMARY | 2025-04-27 06:28 | XMS_ITS | Encounter Summary ---
Author Organization [facility] Address [address] [place] [address] Care Team Providers Care Retail Route Supervisor Name Role Phone Anil Harmon MD Primary Care Provider + Encounter Details Date Type Department Care Team (Late st Contact Info) Description 06/26/2012 Abstract [facility] Division of Diabetes and Endocrinology [address] [place] [phone] Wiley Desai MD Endocrinology [address] [place] [address] [place] [address] Social History Tobacco Use Types Packs/Day Years [...] Progress Notes * Wiley Desai MD - 06/26/2012 12:33 PM EST Bradly Dawson is a 22 year old male with type 1 diabetes diagnosed on January 22, 1994. Bradly does not have primary hypothyroidism, elevated LDL- cholesterol, elevated triglycerides, low HDL-cholesterol, microalbuminuria, elevated blood pressure, or celiac disease. Bradly had an elevated triglycerides (301 mg/dl, March 2011) and a low HDL-cholesterol (38 mg/dl, March 2011). Bradly was last seen in the Diabetes center on May 03, 2012. Bradly Hgb A1c was 9%. Since Bradly last clinic visit in April 2012, Bradly denies polyuria, polydipsia, polyphagia, nocturia, or a significant hypoglycemic event. documented in this encounter Plan of Treatment Not on file documented as of this encounter Visit Diagnoses Not on filedocumented in this encounter Care Teams Retail Route Supervisor Relationship Specialty Start Date End Date Anil Harmon MD [address] [place] [address] PCP - General 12/24/09 documented as of this encounter
--- OUTSIDE RECORDS SUMMARY | 2025-04-27 06:29 | XMS_ITS | Encounter Summary ---
Author Organization [facility] Address [address] [place] [address] Care Team Providers Care Licensed Journeyman Electrician Name Role Phone Anil Harmon MD Primary Care Provider + Encounter Details Date Type Department Care Team (Late st Contact Info) Description 02/07/2010 Abstract [facility] Division of Diabetes and Endocrinology [address] [place] [phone] Sales Operations Coordinator, [facility] Social History Tobacco Use Types Packs/Day Years Used Date Smoking Tobacco: Never Assessed Alcohol Use Standard Drinks/Week Comments No 0 [...] on filedocumented in this encounter Care Teams Licensed Journeyman Electrician Relationship Specialty Start Date End Date Anil Harmon MD [address] [place] [address] PCP - General 12/24/09 documented as of this encounter
--- OUTSIDE RECORDS SUMMARY | 2025-04-27 06:29 | XMS_ITS | Encounter Summary ---
Author Organization [facility] Address [address] [place] [address] Care Team Providers Care Track Laying Machine Operator Name Role Phone Anil Harmon MD Primary Care Provider + Encounter Details Date Type Department Care Team (Late st Contact Info) Description 02/13/2010 Abstract [facility] Division of Diabetes and Endocrinology [address] [place] [phone] Mining Detail Draftsperson, [facility] Type 1 diabetes mellitus, uncontrolled (Primary Dx) [...] on file documented as of this encounter Last Filed Vital Signs Vital Sign Reading Time Taken Comments Blood Pressure 96/66 10/08/2009 3:10 PM EDT Pulse 80 10/08/2009 3:10 PM EDT Temperature - - Respiratory Rate 16 10/08/2009 3:10 PM EDT Oxygen Saturation - - Inhaled Oxygen Concentration - - Weight 53.7 kg (118 lb 6.2 oz) 10/08/2009 3:10 P M EDT Height 171 cm (5' 7.32 ) 10/08/2009 3:10 PM EDT Body Mass Index 18.36 10/08/2009 3:10 PM EDT Body Mass Index Percentile 8.07% 10/08/2009 3:1 0 PM EDT Growth Chart: CDC (Boys, 2-2 0 Years) documented in this encounter Plan of Treatment Not on file documented as of this encounter Results * (ABNORMAL) POCT Hgb A1C (10/26/2012 12:26 PM EDT) HGB AIC, POC 9.4(A) 3.5 - 6.3 % Blood specimen (specimen) 10/26/2012 12:26 PM EDT Result [facility] Sandra Monzon [facility] POINT OF CARE TESTING Final Result * (ABNORMAL) POCT Hgb A1C (07/26/2012 9:05 AM EST) [facility] HGB AIC, POC 9(A) 3.5 - 6.3 % Blood specimen (specimen) 07/26/2012 9:05 AM EST Result [facility] Sandra Monzon [facility] POINT OF CARE TESTING Final Result * POCT UR Ketone Dipstick (07/26/2012 8:55 AM EST) Pathologist [facility] U KETONE, POC Negative Urine specimen (specimen) 07/26/2012 8:55 AM EST Result [facility] Sandra Monzon [facility] POINT OF CARE TESTING Final Result * POCT UR Albumin (Microalbumin)/Creatinine (05/03/2012 11:25 AM EST) [facility] U ALBUMIN (MICROALBUMIN), POC 5.7 U CREATININE, POC 89.9 U MALB/CREAT RATIO, POC 6.3 0 - 30 Urine specimen (specimen) 05/03/2012 11:25 AM EST Result [facility] Sandra Monzon [facility] POINT OF CARE TESTING Final Result * POCT UR Ketone Dipstick (05/03/2012 11:24 AM EST) Pathologist [facility] U KETONE, POC Negative Urine specimen (specimen) 05/03/2012 11:24 AM EST Sandra Monzon CATHEAD WORK[employer] POINT OF CARE TESTING Final Result * (ABNORMAL) POCT Hgb A1C (05/03/2012 11:21 AM EST) HGB AIC, POC 9(A) 3.5 - 6.3 % Blood specimen (specimen) 05/03/2012 11:21 AM EST Sandra Monzon [facility]HEAD WORK[facility] POINT OF CARE TESTING Final Result documented in this encounter Visit Diagnoses Diagnosis Type 1 diabetes mellitus, uncontrolled- Primary Type I (juvenile type) diabetes mellitus without mention of complication, uncontrolled documented in this encounter Care Teams Track Laying Machine Operator Relationship Specialty Start Date End Date Anil Harmon MD [address] [place] [address] PCP - General 12/24/09 documented as of this encounter
--- OUTSIDE RECORDS SUMMARY | 2025-04-27 06:29 | XMS_ITS | Clinical Summary ---
Author Organization [facility] Address [address] [facility] [address] [place] [address] Phone Care Team Providers Care Clerical And Office Support Workers Name Role Phone Shola Rosario Primary Care Provider Allergies No known active allergies Medications ACETAMINOPHEN/DI PHENHYDRAMINE (TYLENOL DAY & NIGHT ORAL) Take 1 Tab by mouth as needed. Active Acetone, Urine, Test (KETONE URINE TEST) Misc StripIndications :Uncontrolled type 1 diabetes mellitus Check urine for ketones if BG>300 1 box 11 10/07/19 16 Active lancets 28 gauge Misc MiscIndications: Uncontrolled type 1 diabetes mellitus with complication Subcutaneous (Inject under the skin) 4 Sticks daily. Freestyle Lancets. Dx code E10.65 150 Each 11 06/14/19 18 Active Blood Sugar Diagnostic Misc StripIndications :Uncontrolled type 1 diabetes mellitus with complication Use to test sugars four daily. Freestyle Test Strips. Dx code E10.65, E 10.8 150 Strip 11 06/14/19 18 Active rivaroxaban (XARELTO) 15 mg Oral Tablet Take 1 Tab by mouth 2 times daily. 60 Tab 06/30/19 18 Active Additional Information Patient not taking.Reported on 12/31/2021 ELIQUIS 5 mg Oral Tablet 06/30/19 18 Active glucagon, human recombinant, (GLUCAGON EMERGENCY KIT, HUMAN,) 1 mg Inj KitIndications:U ncontrolled type 1 diabetes mellitus with complication Inject 1 mg IM for severe low blood sugar E10.65 2 Kit 2 10/06/19 18 Active Additional Information Patient not taking.Reported on 12/31/2021 aspirin 81 mg Oral Tablet, Chewable Take 81 mg by mouth daily. Active KAYLEEN PEN NEEDLE 32 gauge x [facility] NeedleIndication s:Uncontrolled type 1 diabetes mellitus with complication USE UP TO 4 TIMES DAILY DIRECTED 150 Each 6 12/28/19 21 Active DEXCOM G6 TRANSMITTER Misc Device 1 Each by [facility]Non-Drug; Combo Route) route Every 90 Days. 1 Each 3 12/28/19 21 Active Additional Information Patient not taking.Reported on 12/31/2021 DEXCOM G6 SENSOR Misc Device 1 Each by [facility]Non-Drug; Combo Route) route every 10 days. 3 Each 11 12/28/19 21 Active Additional Information Patient not taking.Reported on 12/31/2021 DEXCOM G6 AB INITIO ETL DEVELOPER Misc Misc 1 Each by [facility]Non-Drug; Combo Route) route continuous. 1 Each 1 12/28/19 21 Active Additional Information Patient not taking.Reported on 12/31/2021 Insulin glargine (SEMGLEE PEN U-100 INSULIN) 100 unit/mL (3 mL) SubQ Insulin Pen INJECT UP TO 30 UNITS DAILY 15 mL 3 01/01/20 22 Active SEMGLEE,INSULIN GLARG-YFGN,PEN 100 unit/mL (3 mL) SubQ Insulin Pen INJECT UP TO 32 UNITS SUBCUTANEOUSLY ONCE DAILY 12 mL 07/25/19 23 Active HUMALOG KWIKPEN INSULIN 100 unit/mL SubQ Insulin Pen USE DIRECTED. 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 Type 1 diabetes mellitus with other specified co mplication 06/26/2017 Hyponatremia 06/26/2017 Hyperkalemia 06/26/2017 Type 1 diabetes mellitus with other specified co mplication 01/31/2015 Surgical History Surgery Date Site/Laterality Comments KNEE SURGERY 05/24/2007 - 05/23/2008 Left Football Injury Medical History Medical History Date Comments Type 1 diabetes mellitus (HCC) Family History Medical History Relation Name Comments No Known Problems Brother Cancer Father Lung Cancer Diabetes Maternal Aunt No Known Problems Maternal Grandfather No Known Problems Maternal Grandmother High Blood Pressure Maternal Uncle Bipolar Disorder Mother No Known Problems Other No Known Problems Paternal Aunt No Known Problems Paternal Grandfather No Known Problems Paternal Grandmother No Known Problems Paternal Uncle No Known Problems Sister 1 No Known Problems Sister 2 No Known Problems Sister 3 High Blood Pressure Sister 4 Oldest S ister Bleeding Prob Neg Hx Breast Cancer Neg Hx COPD Neg Hx Cervical Cancer Neg Hx Clotting Disorder Neg Hx Colon Cancer Neg Hx Coronary Art Dis Neg Hx Endometrial Cancer Neg Hx Hypertension Neg Hx Lung Cancer Neg Hx Other Neg Hx Ovarian Cancer Neg Hx Prostate Cancer Neg Hx Rectal Cancer Neg Hx Relation Name Status Comments Brother Father Maternal Aunt Maternal Grandfather Maternal Grandmother Maternal Uncle Mother Alive Other Paternal Aunt Paternal Grandfather Paternal Grandmother Paternal Uncle Sister 1 Alive Sister 2 Alive Sister 3 Alive Sister 4 Social History Tobacco Use Types Packs/Day Years Used Date Smoking Tobacco: Former Smokeless Tobacco: Current Chew Comments:pt states he quit s moking about 2-3 years ago Alcohol Use Standard Drinks/Week Comments No 0 (1 standard drink = 0.6 oz pur e alcohol) Sex and Gender Information Value Date Recorded Sex Assigned at Not on file Legal Sex Male 8:38 AM EDT Gender Identity Not on file Sexual Orientation Not on file Last Filed Vital Signs Vital Sign Reading Time Taken Comments Blood Pressure 124/83 05/05/2019 3:23 PM EST Pulse 91 05/05/2019 3:23 PM EST Temperature 1 C (33.8 F) 06/15/2019 2:02 PM EST Respiratory Rate 16 05/05/2019 3:23 PM EST Oxygen Saturation 98% 11/05/2017 3:30 PM EDT Inhaled Oxygen Concentration - - Weight 59 kg (130 lb) 12/31/2021 7:54 AM EDT Per Patient Height 165.1 cm (5' 5 ) 12/31/2021 7:54 AM EDT Body Mass Index 21.63 12/31/2021 7:54 AM EDT Plan of Treatment Health Maintenance Due Date Last Done Comments Annual Wellness Exam 1995 Hepatitis B Vaccine (2 of 3 - 3-dose series) 02/07/1997 01/10/1997 DTaP/TDaP/Td (1 - Tdap) 2011 Hemoglobin A1c 04/07/2018 10/05/2017, 05/25, 07/27/2016, Additional history exists Kidney Health: uACR 06/14/2018 06/14/2017, 10/07/2015, 01/31/2015 Lipids 06/14/2018 06/14/2017 Kidney Health: eGFR 10/05/2018 10/05/2017, 07/08/2017, 06/30/2017, Additional history exists Diabetic Eye Exam 10/04/2022 10/04/2021, 10/06/2017 COVID-19 Vaccine ( season) 2025 Influenza Vaccine (#1) 2025 5 (Postponed), 02/19/2014, 03/01/2012, Additional history exists Meningococcal B Vaccine Aged Out No l onger eligible based on patient's age to complete this topic Pneumococcal Vaccine 0-49 Aged Out No longer eligible based on patient's age to complete this topic Procedures Procedure Name Priority Date/Time Associated Diagnosis Comments DIABETES EYE EXAM Routine 10/04/2021 BASIC METABOLIC PANEL Routine 10/05/2017 11:05 AM EDT Uncontrolled type 1 diabetes mellitus with complication (HCC) HEMOGLOBIN A1C Routine 10/05/2017 11:05 AM EDT Uncontrolled type 1 diabetes mellitus with complication (HCC) ALBUMIN/CREATININE RATIO, RANDOM URINE Routine 06/14/2017 10:06 AM EST Uncontrolled type 1 diabetes mellitus with complication (HCC) LIPID PANEL REFLEX Routine 06/14/2017 9: 42 AM EST Uncontrolled type 1 diabetes mellitus with complication (HCC) from Last 3 Months or Most Recently Relevant to Health Maintenance Results * (ABNORMAL) DIABETES EYE EXAM (10/04/2021) Left Diabetic Retinopathy Present Present/Not Present SEP OFFICE Right Diabetic Retinopathy Present Present/Not Present SEP OFFICE us Historical Provider HEALTH MAINTENANCE Edited Re sult - Final SEP OFFICE * (ABNORMAL) HEMOGLOBIN A1C (10/05/2017 11:05 AM EDT) Pathologist [facility] Hgb A1C 11.4(H) <=7.0 % 10/05/2017 4:30 PM EDT [facility] Est. Avg Glucose 280 mg/dL 10/05/2017 4:30 PM EDT [facility] Blood Venipuncture / Unknown 10/05/2017 11:05 AM EDT 10/05/2017 11:10 AM EDT Narrative [facility] - 10/05/2017 4:30 PM EDT Reference Interval for Hgb A1c Hgb A1c Interpretation < 6.0 Non-Diabetic Range 6.0 - 7.0 ADA Therapeutic Target > 7.0 Action suggested us Sue Rivas RN CAMP CHEMISTRY ORDERABLES Final R esult [facility] [address] [place] [address] * (ABNORMAL) BASIC METABOLIC PANEL (10/05/2017 11:05 AM EDT) [facility] Sodium 138 136 - 145 mmol/L 10/05/2017 4:16 PM EDT [facility] Potassium 4.3 3.5 - 5.0 mmol/L 10/05/2017 4:16 PM EDT [facility] Chloride 98 98 - 107 mmol/L 10/05/2017 4:16 PM EDT [facility] Total CO2 27 22 - 29 mmol/L 10/05/2017 4:16 PM EDT [facility] Anion Gap 13 7 - 16 mmol/L 10/05/2017 4:16 PM EDT [facility] Calcium 9.7 8.6 - 10.2 mg/dL 10/05/2017 4:16 PM EDT [facility] Glucose Lvl 260(H) 74 - 100 mg/dL 10/05/2017 4:16 PM EDT [facility] BUN 12 6 - 20 mg/dL 10/05/2017 4:16 PM EDT [facility] Creatinine 0.75 0.67 - 1.30 mg/dL 10/05/2017 4:16 PM EDT [facility] GFR Afr Am 147 mL/min/1.7 3 m2 10/05/2017 4:16 PM EDT [facility] GFR Non Afr Am 127 mL/min/1.7 3 m2 10/05/2017 4:16 PM EDT [facility] Comment: GFR Afr Am and GFR Non Afr Am calculated using CKD-EPI equation. GFR Category GFR(mL/min/1.73 m ) Kidney Function G1 >=90 Normal or high G2 60-89 Mildly decreased G3a 45-59 Mildly to moderately decreased G3b 30-44 Moderately to severely decreased G4 15-29 Severely decreased G5 <15 Kidney Failure Blood Venipuncture / Unknown 10/05/2017 11:05 AM EDT 10/05/2017 11:10 AM EDT us Sue Rivas APRN CHEMISTRY ORDERABLES Final R esult [facility] [address] [place] [address] * MICROALBUMIN/CREATININE RATIO URINE (06/14/2017 10:06 AM EST) Urine Albumin <12.0 mg/L 06/14/2017 4:47 PM EST [facility] Urine Creatinine 88.1 mg/dL 06/14/2017 4:47 PM EST [facility] Ur Albumin/Creat Ratio 0 - 30 mg/gm 06/14/2017 4:47 PM EST [facility] Comment:Unable to calculate due to value outside linearity Urine 06/14/2017 10:0 6 AM EST 06/14/2017 10:06 AM EST us Saray Hayes MD URINE ORDERABLES Final Re sult Performing Organization Address City/[facility]/ZIP Co de Phone Number [facility] [address] [place] [address] * (ABNORMAL) LIPID PANEL REFLEX (06/14/2017 9:42 AM EST) Cholesterol 180 <=200 mg/dL 06/14/2017 3:56 PM EST [facility] Comment: < 200 Desirable 200 - 239 Borderline High >= 240 High Triglyceride 216(H) <=150 mg/dL 06/14/2017 3:56 PM EST [facility] Comment: < 150 Normal 150 - 199 Borderline High 200 - 499 High >= 500 Very High HDL 54 >=40 mg/dL 06/14/2017 3:56 PM EST [facility] Comment: > 60 Optimal 40 - 60 Acceptable < 40 Low LDL Calculated 83 <=100 mg/dL 06/14/2017 3:56 PM EST [facility] Blood Venipuncture / Unknown 06/14/2017 9:42 AM EST 06/14/2017 9:42 AM EST us Saray Hayes MD CHEMISTRY ORDERABLES Cassy l Result Performing Organization Address City/[facility] Co de Phone Number [facility] [address] [place] [address] from Last 3 Months or Most Recently Relevant to Health Maintenance Advance Directives For more information, please contact: [phone] * Full Code (Latest Code Status on File) Date Activated Date Inactivated Comments 06/26/2017 4:11 PM 06/30/2017 6:27 PM * Full Code Date Activated Date Inactivated Comments 06/26/2017 1:44 PM 06/26/2017 4:11 PM Care Teams Clerical And Office Support Workers Relationship Specialty Start Date End Date Shola Rosario [address] [place] [address] PCP - General Clinic/Center - [facility] ([facility] 01/31/15
== END 2025-04-27 06:30 | disposition home or self-care (01) ==
LOC: ER 06:26
PROVIDERS: Emergency Provider Emergency Medicine; PCP Nurse Practitioner Family
DX: R07.9 Chest pain, unspecified (principal); E10.9 Type 1 diabetes mellitus without complications; Z87.891 Personal history of nicotine dependence; Z79.4 Long term (current) use of insulin; Z79.899 Other long term (current) drug therapy
CPT/HCPCS: 71045; 80053; 83690; 84484; 85025; 85378; 93005; 99285